=== PATIENT | female | born 1985 | race Caucasian/White ===

== ENCOUNTER 2016-12-27 16:13 | Inpatient (IN) | payer OTHER ==
[~2016-12-27] VITALS: Ht 154.9 cm; Wt 84.8 kg
[~2016-12-27 16:13] MED LIST: /ONDA4TA OR; AZAT50TA2 PO; AZATPOW PO; BACIDCA PO; BIRTH CONTROL PO; COZA50TA18 PO; FLUD1TA PO; FLUDROCORTISONE PO; HYDR5TAB59 PO; HYDRPOW14 PO; INSUH10VL SC; LOSA50TA20 PO; LOW-TAB2 PO; POTA-77 PO; SYNT125T PO; SYNT150T PO; VITAMIN B12 PO; [UNRECOGNIZED DRUG - CODE] PO
[2016-12-27] MEDS ORDERED: CELL500T PO (16:32)
[2016-12-27] MEDS ORDERED: LEVO10VL PO (16:32)
[2016-12-27] MEDS ORDERED: NS 1,000 ML IV ONE ×2 (17:00→19:15)
[2016-12-27] MEDS ORDERED: PROMETHAZINE INJ 25 MG/ML VIAL (J2550) IV ONE (17:00)
[2016-12-27 17:39] LABS: MEAN CORPUSCULAR HGB CONC 35.6 g/dl (32.0-36.5); PLATELET COUNT, AUTOMATED 283 k/mm3 (150-450); RED CELL DISTRIBUTION WIDTH 13.9 % (11.5-14.5); WHITE BLOOD COUNT 11.3 K/mm3 (4.0-10.0)
[2016-12-27 17:52] LABS: ANION GAP 13 MEQ/L (8-16); BLOOD UREA NITROGEN 13 MG/DL (7-18); CALCIUM LEVEL 8.4 MG/DL (8.5-10.1); CARBON DIOXIDE LEVEL 24 MEQ/L (21-32); CHLORIDE LEVEL 107 MEQ/L (98-107); CREATININE FOR GFR 0.89 MG/DL (0.55-1.02); GLOMERULAR FILTRATION RATE > 60.0 (>60); GLUCOSE, FASTING 148 MG/DL (70-105); POTASSIUM SERUM 3.3 MEQ/L (3.5-5.1); SODIUM LEVEL 144 MEQ/L (136-145)
[2016-12-27 17:53] LABS: BANDS 3 % (< 11); EOSINOPHILS 1 % (0-5)
[2016-12-27] MEDS ORDERED: ONDANSETRON 4MG/2ML VIAL (J2405) As Ordered ONE (19:11)
[2016-12-27] MEDS ORDERED: ONDANSETRON 4MG/2ML VIAL (J2405) IV ONE (19:15)
[2016-12-27 19:35] LABS: ALBUMIN 3.2 GM/DL (3.2-5.2); ALBUMIN/GLOBULIN RATIO 0.71 (1.00-1.93); ALKALINE PHOSPHATASE 65 U/L (45-117); ALT/SGPT 31 U/L (12-78); AST/SGOT 25 U/L (15-37); BILIRUBIN,DIRECT 0.3 MG/DL (0.0-0.2); TOTAL PROTEIN 7.7 GM/DL (6.4-8.2)
[2016-12-27] MEDS ORDERED: KCL 20MEQ IN 100ML SWI (KRUN) 20 MEQ in APPROPRIATE DILUENT 1 EA IV ONE ×2 (19:45)
[2016-12-27 20:01] LABS: INR 1.15
[2016-12-27] MEDS ORDERED: GLUCAGON FOR INJ 1 MG VIAL (J1610) SC PRN (20:15)
[2016-12-27] MEDS ORDERED: METOCLOPRAMIDE INJ 10MG/2ML VIAL (J2765) IV PRN (20:15)
[2016-12-27] MEDS ORDERED: DEXTROSE 50% 50 ML SYRINGE IV PRN (20:15)
[2016-12-27] MEDS ORDERED: GLUCOSE 4 GM CHEW TABLET PO PRN (20:15)
[2016-12-27] MEDS ORDERED: HYDR5TAB59 PO (20:26)
[2016-12-27] MEDS ORDERED: FLUD1TA PO (20:26)
[2016-12-27] MEDS ORDERED: HYDR-3291 PO (20:26)
[2016-12-27] MEDS ORDERED: INSUH10VL SC (20:26)
[2016-12-27] MEDS ORDERED: LEVO137T14 PO (20:28)
[2016-12-27] MEDS ORDERED: MYCO250C PO (20:28)
[2016-12-27] MEDS ORDERED: LOSA50TA20 PO (20:28)
[2016-12-27] MEDS ORDERED: HYDR10T PO (20:30)
[2016-12-27] MEDS ORDERED: CRYS28TA PO (20:30)
[2016-12-27 20:33] LABS: AMYLASE 30 U/L (25-115)
--- NOTE | 2016-12-27 20:36 | HPEPDOC ---
General Date of Admission Dec 27, 2016 at 20:07 Chief Complaint The patient is a 31-year-old female Presented to the ER with complaints of nausea, vomiting and diarrhea starting this morning. History of Present Illness Patient is a 31 year old female with a PMHx of Hypothyroidism, Lupus nephritis, Autoimmune hepatitis, Addisons disease and IDDM1 who presented to the ER with complaints of nausea, vomiting and diarrhea starting this morning. She noted that at 10 am this morning she had an upset stomach and began having nausea and vomiting soon after. She went to her PCPs office (Dr. Hilton) at 1pm and was told to come to the ER. She had begun to experience diarrhea since that point and the last episode was around 4PM. She notes the vomiting has been mostly liquid, without blood and appeared yellow. Her diarrhea was very watery, no evidence of blood or mucus. She denies any recent fevers today. 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 Her abdominal pain was reported at the epigastric area. She rate the pain as a 8 /10, achy / burning sensation, intermittent, non-radiating, no alleviating or aggravating factors. She denies any chest pain, shortness of breath, palpitations, headache, or urinary symptoms. She does report that she gets a little light headed when she sits up too quickly, but denies passing out. Home Medications Scheduled (Bobe-28 0.3-30 mg-Mcg) 1 Tab Tab 1 TAB PO QHS (Reported) Fludrocortisone Acetate (Fludrocortisone Acetate) 0.1 Mg Tab 0.1 MG PO DAILY ( Reported) Hydrocortisone Base (Hydrocortisone) 10 Mg Tab 10 MG PO QAM (Reported) Hydrocortisone Base (Hydrocortisone) 5 Mg Tab 5 MG PO QHS (Reported) Insulin Aspart (Novolog) 100 U/Ml Inj 0 SC ASDIRECTED (Reported) INSULIN PUMP - DISCONNECTED AROUND 1530 Levothyroxine Sodium (Levoxyl) 137 Mcg Tab 137 MCG PO DAILY (Reported) Losartan Potassium (Losartan Potassium) 50 Mg Tab 50 MG PO DAILY (Reported) Mycophenolate Mofetil (Mycophenolate Mofetil) 250 Mg Cap 750 MG PO BID ( Reported) WAS ON A TAPER UP DOSE. SPOKE WITH KIDNEY DR AND STATES THAT SHE CAN DECREASE BACK TO EITHER 250MG BID OR 500MG BID, PATIENT AND FAMILY CANNOT REMEMBER WHICH STRENGTH Scheduled PRN Hydroxyzine HCl (Hydroxyzine HCl) 10 Mg Tab 10 MG PO QID PRN PRN ITCHING ( Reported) Allergies Coded Allergies: Bacitracin (Verified Allergy, Intermediate, 12/27/16) Ibuprofen (Verified Allergy, Intermediate, 12/27/16) Metronidazole (Verified Allergy, Intermediate, flushing, itching, tingling , 02/01/13) Neomycin (Verified Allergy, Intermediate, 12/27/16) Polymyxin B (Verified Allergy, Intermediate, 12/27/16) Shellfish Allergy (Verified Allergy, Intermediate, HIVES, 01/21/13) Past Medical History Medical History Hypothyroidism, Lupus nephritis, Autoimmune hepatitis, Addisons disease and IDDM1 Surgical History Appendectomy 1997 Liver biopsy 1996 Kidney biopsy 2016 Family History - Non-contributory Social History - Denies the use of alcohol, tobacco or illicit drugs - Denies recent travel; + Sick contacts at day care - Lives with mom - Occupation; works at [employer] care Review of Symptoms Other systems Constitutional: Denies weight loss, or recent trauma; Positive loss of appetite Eyes: No visual changes or eye pain Ears, Nose, Throat: Denies nose bleeds, or difficulty swallowing Cardiovascular: Denies chest pain, sweating, or orthopnea Respiratory: Denies cough, wheezing, or shortness of breath GI: Positive nausea, vomiting, abdominal pain, and diarrhea, No constipation : Denies pain with urination or frequency Musculoskeletal: Denies joint pain or swelling Neuro / Psych: Denies muscle weakness or sensory loss Skin: No skin rashes noted All other review of systems negative; otherwise stated in history of present illness Vital Signs - Vitals: BP 139/85, HR 127, RR 18, Sat 99%RA, Temp 99.2 - General: Lying in bed, No acute distress, Speaking in full sentences, AAOx3 - HEENT: NC, AT, PERRLA, EOMI - CVS: Tachycardic, Regular rhythm, +S1S2, - Murmurs / rubs / gallops - Lungs: Fair air entry bilaterally, Clear to auscultation, No wheezing / rales / rhonchi - Abdomen: Soft, Non-distended, Tenderness at epigastrium, + Bowel sounds x 4 - Extremities: + PPx4, No lower extremity edema, No calf tenderness - Neuro: No focal motor or sensory deficit - Skin: No visible rashes Laboratory Data Labs 24H Laboratory Tests 2 12/27/16 17:25: Aspartate Amino Transf (AST/SGOT) 25, Alanine Aminotransferase (ALT/SGPT) 31, Alkaline Phosphatase 65, Total Bilirubin 1.0, Direct Bilirubin 0.3H, Albumin 3.2 , Albumin/Globulin Ratio 0.71L, Amylase Level 30, Anion Gap 13, Band Neutrophils 3, White Blood Count 11.3H, Red Blood Count 4.84, Hemoglobin 15.5, Hematocrit 43.6, Mean Corpuscular Volume 90.0, Mean Corpuscular Hemoglobin 32.0 , Mean Corpuscular Hemoglobin Concent 35.6, Red Cell Distribution Width 13.9, Platelet Count 283, Neutrophils (%) (Auto) , Lymphocytes (%) (Auto) , Monocytes (%) (Auto) , Eosinophils (%) (Auto) , Basophils (%) (Auto) , Neutrophils # (Auto ) , Lymphocytes # (Auto) , Monocytes # (Auto) , Eosinophils # (Auto) , Basophils # (Auto) , C-Reactive Protein, Quantitative 3.43H, Calcium Level 8.4L , Cortisol Response to Stimulation (T 1.6L, Eosinophils (Manual) 1, Glomerular Filtration Rate > 60.0, Large Unclassified Cells # , Large Unclassified Cells % , Lipase 90, Lymphocytes (Manual) 5L, Monocytes (Manual) 2, Neutrophils 89H, Platelet Estimate NORMAL, Red Blood Cell Morphology NORMAL, Total Protein 7.7 12/27/16 19:27: Activated Partial Thromboplast Time 21.3L, Prothromb Time International Ratio 1.15, Prothrombin Time 14.8H 12/27/16 19:40: CBC/BMP Laboratory Tests 12/27/16 17:25 Red Blood Count 4.84, Mean Corpuscular Volume 90.0, Mean Corpuscular Hemoglobin 32.0, Mean Corpuscular Hemoglobin Concent 35.6, Red Cell Distribution Width 13.9 , Neutrophils (%) (Auto) , Lymphocytes (%) (Auto) , Monocytes (%) (Auto) , Eosinophils (%) (Auto) , Basophils (%) (Auto) , Neutrophils # (Auto) , Lymphocytes # (Auto) , Monocytes # (Auto) , Eosinophils # (Auto) , Basophils # ( Auto) Microbiology Microbiology 12/27/16 Blood Culture, Received Pending Plan / VTE VTE Prophylaxis Ordered?: Yes Plan Plan Intractable nausea, vomiting and diarrhea possibly 2/2 gastroenteritis (likely viral), possible adrenal crisis - Presented with nausea, vomiting and diarrhea since this morning - Possible sick contacts at day care - Physical reveals generalized fatigue and abdominal tenderness - Will check orthostatic vital signs Q8H, check GI panel - Will give IV fluid hydration with normal saline - Will hold off on antibiotics at this time - Will keep NPO for now - Will provide symptomatic control with metoclopramide - Will increase dose of home hydrocortisone and give intravenously Tachycardia possibly 2/2 hypovolemia - no reports of chest pain, palpitations or SOB - will check EKG - will give IV fluid hydration Leukocytosis possibly 2/2 reactive etiology, possibly infectious - will check urinalysis, urine cultures, blood cultures and lactic acid - will c/w IV fluid hydration - will hold off on antibiotics at this point Hypokalemia - will supplement via IV Hypothyroidism - c/w levothyroxine Lupus nephritis and autoimmune hepatitis - has recently been changed to mycophenolate mofetil - will continue home medications Addisions disease possible crisis at this time - low cortisol level - see #1 IDDM1 - has been on insulin pump at home - will stop insulin pump because she is NPO - will start insulin sliding scale Gastrointestinal prophylaxis - Will start protonix DVT prophylaxis - Will start heparin HUGH KNOX MD Dec 27, 2016 20:36
[2016-12-27] MEDS ORDERED: HumaLOG INSULIN (NovoLOG) PER UNIT SC SCH (21:00)
[2016-12-27] MEDS ORDERED: MYCOPHENOLATE MOFETIL 250 MG CAP (J7517) PO SCH (21:00)
[2016-12-27] MEDS: NS 1,000 ML IV SCH (21:14)
[2016-12-27] MEDS: KCL 10MEQ IN STERILE WATER 100ML IV SCH ×2 (22:16→23:28)
[2016-12-27] MEDS: HYDROCORTISONE 100 MG/2 ML VIAL (J1720) IV SCH (22:16)
[2016-12-27] MEDS: ACETAMINOPHEN TAB 650MG DOSE (2X325MG) PO PRN (22:50)
[2016-12-27 23:00] VITALS: BP_SYST 121; BP_SYST 124; BP_SYST 125; BP_DIAS 69; BP_DIAS 73; BP_DIAS 74
[2016-12-27] MEDS: MYCOPHENOLATE MOFETIL 250 MG CAP (J7517) PO SCH (23:22)
[2016-12-28] MEDS: HumaLOG INSULIN (NovoLOG) PER UNIT SC SCH ×4 (00:14→18:00)
[2016-12-28] MEDS: PIPERACILLIN/TAZOBACTAM SOD 3.375 GM in D5W MINI-BAG PLUS 50 ML IV SCH ×4 (00:20→23:50)
--- NOTE | 2016-12-28 00:27 | REP ---
Clinical: Chest pain and dyspnea. Evaluate for infiltrate. Comparison: 01/30/2013 . Technique: PA and lateral. Findings: The mediastinum and cardiac silhouette are normal. The lung sharma are clear and without acute consolidation, effusion, or pneumothorax. The skeletal structures are intact and normal. Impression: 1. No acute cardiopulmonary process. Signed by Jermaine Gallego MD 12/28/2016 12:19 A
[2016-12-28] MEDS ORDERED: ASPIRIN 325 MG TAB PO ONE (01:30)
[2016-12-28 04:00] VITALS: BP 127/65
[2016-12-28] MEDS: ACETAMINOPHEN TAB 650MG DOSE (2X325MG) PO PRN ×3 (04:36→20:31)
[2016-12-28 05:21] LABS: EOS % 0.2 % (0.0-3.0); LARGE UNSTAINED CELL # 0.1 K/mm3 (0.0-0.4); LYMPH # 0.5 K/mm3 (1.5-6.5); MEAN CORPUSCULAR HEMOGLOBIN 31.7 pg (27.0-33.0); MEAN CORPUSCULAR HGB CONC 34.6 g/dl (32.0-36.5); MEAN CORPUSCULAR VOLUME 91.5 fl (80.0-96.0); MONO # 0.3 K/mm3 (0.0-0.8); MONO % 3.4 % (0.0-5.0); NEUTROPHILS # 6.7 K/mm3 (1.8-7.7); NEUTROPHILS % 89.3 % (36.0-66.0); PLATELET COUNT, AUTOMATED 238 k/mm3 (150-450); RED CELL DISTRIBUTION WIDTH 14.1 % (11.5-14.5); WHITE BLOOD COUNT 7.5 K/mm3 (4.0-10.0)
[2016-12-28 05:50] LABS: CALCIUM OXALATE CRYSTALS SMALL
[2016-12-28 06:04] LABS: ALBUMIN 2.2 GM/DL (3.2-5.2); ALBUMIN/GLOBULIN RATIO 0.61 (1.00-1.93); ALKALINE PHOSPHATASE 42 U/L (45-117); ALT/SGPT 23 U/L (12-78); ANION GAP 10 MEQ/L (8-16); AST/SGOT 24 U/L (15-37); BILIRUBIN,TOTAL 1.1 MG/DL (0.2-1.0); BLOOD UREA NITROGEN 13 MG/DL (7-18); CALCIUM LEVEL 7.1 MG/DL (8.5-10.1); CARBON DIOXIDE LEVEL 22 MEQ/L (21-32); CHLORIDE LEVEL 110 MEQ/L (98-107); GLOMERULAR FILTRATION RATE > 60.0 (>60); GLUCOSE, FASTING 267 MG/DL (70-105); MAGNESIUM LEVEL 1.5 MG/DL (1.8-2.4); POTASSIUM SERUM 3.7 MEQ/L (3.5-5.1); SODIUM LEVEL 142 MEQ/L (136-145); TOTAL PROTEIN 5.8 GM/DL (6.4-8.2)
[2016-12-28] MEDS: NS 1,000 ML IV SCH ×2 (06:26→16:07)
[2016-12-28] MEDS: HYDROCORTISONE 100 MG/2 ML VIAL (J1720) IV SCH (06:27)
[2016-12-28] MEDS: HEPARIN SOD (PORCINE) 5000 UNITS/ML VIAL SC SCH ×3 (06:28→21:10)
[2016-12-28] MEDS: LEVOTHYROXINE 0.137 MG TAB (137MCG) PO SCH (06:28)
[2016-12-28] MEDS ORDERED: HumaLOG INSULIN (NovoLOG) PER UNIT SC SCH (07:30)
[2016-12-28 08:00] VITALS: BP 117/68
[2016-12-28] MEDS: PANTOPRAZOLE 40MG INJ (PROTONIX) (C9113) IV SCH (08:03)
[2016-12-28] MEDS: MYCOPHENOLATE MOFETIL 250 MG CAP (J7517) PO SCH ×2 (08:04→20:30)
[2016-12-28] MEDS: FLUDROCORTISONE ACETATE 0.1 MG TAB PO SCH (08:04)
[2016-12-28 08:09] VITALS: BP_DIAS 68
[2016-12-28] MEDS: LOSARTAN 50 MG TAB PO SCH (08:09)
--- NOTE | 2016-12-28 08:24 | ECGEPIP ---
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
[2016-12-28] MEDS: MAG SULF 1GM/100ML (MAG RUN) 1 GM in APPROPRIATE DILUENT 1 EA IV SCH ×2 (09:00→11:17)
[2016-12-28 14:15] VITALS: BP 128/82
[2016-12-28 15:04] LABS: HCG, SERUM QUANTITATIVE < 1.0 MIU/ML
[2016-12-28 16:00] VITALS: BP 134/78
[2016-12-28 20:00] VITALS: BP 112/67
--- NOTE | 2016-12-28 20:09 | IPNPDOC ---
Subjective Date Seen The patient was seen on 12/28/16. Subjective Chief Complaint/HPI The patient is a 31-year-old female admitted with a reason for visit of Abnormal Cortison Level,Dehydration Enteritis,Vomi. Events since last encounter pt seen and examined, doing well, states she has had no nausea or vomiting since admission, is hungry and asking for food, no diarrhea Objective Physical Examination General Exam: Positive: No Acute Distress Eye Exam: Positive: Conjunctiva & lids normal, EOMI, PERRLA, Negative: Sclera icteric Chest Exam: Positive: Clear to auscultation, Normal air movement Heart Exam: Positive: Normal S1, Normal S2, Rate Normal, Regular Rhythm, Negative: Murmurs, Rubs Abdomen Exam: Positive: Normal bowel sounds, Soft, Negative: Hepatospenomegaly, Tenderness Extremity Exam: Positive: Normal pulses, Negative: Clubbing, Cyanosis, Edema Assessment /Plan Problems (1) Dehydration Status: Resolved Problem Text: pt received IVF will d/c once tolerating diet (2) Vomiting Status: Resolved Problem Text: * no vomiting since admission Plan/VTE VTE Prophylaxis Ordered?: Yes VS, I&O, 24H, [facility] Vital Signs/I&O Vital Signs Date Time Temp Pulse Resp B/P Pulse Ox O2 Delivery O2 Flow Rate FiO2 12/28/16 16:20 20 Room Air 12/28/16 16:00 99.1 107 134/78 95 I&O- Last 24 Hours up to 6 AM 12/28/16 06:00 Intake Total 810 ml Output Total 600 ml Balance 210 ml Laboratory Data 24H LABS Laboratory Tests 2 12/27/16 21:20: Bedside Glucose (Misc Panel) 190H 12/27/16 23:10: Bedside Glucose (Misc Panel) 311H 12/28/16 00:18: Lactic Acid Level 1.4 12/28/16 04:42: Urine Amorphous Sediment , Urine Appearance CLEAR, Urine Color YELLOW, Urine pH 5.0, Urine Specific [place] 1.025, Urine Protein 2+H, Urine Glucose (UA) 3+H, Urine Ketones 2+H, Urine Urobilinogen 0.2, Urine Bilirubin NEGATIVE, Urine Leukocyte Esterase NEGATIVE, Urine Bacteria (Auto) 1+H, Urine Blood 3+H, Urine Calcium Carbonate Cryst(Auto) , Urine Calcium Oxalate Cryst (Auto) SMALL, Urine Calcium Phosphate Scarlett (Auto) , Urine Cellular Casts , Urine Cystine Crystals , Urine Granular Casts (Auto) , Urine Hyaline Casts (Auto) 3, Urine Leucine Crystals , Urine Mucus (Auto) , Urine Nitrite NEGATIVE, Urine Oval Fat Bodies ( Auto) , Urine RBC (Auto) 19H, Urine Renal Epithelial Cells , Urine Sperm (Auto) , Urine Squamous Epithelial Cells 1, Urine Transitional Epithelial Cells , Urine Trichomonas (Auto) , Urine Triple Phosphate Cryst (Auto) , Urine Tyrosine Crystals , Urine Uric Acid Crystals (Auto) , Urine WBC (Auto) 7H, Urine Waxy Casts (Auto) , Urine Yeast-Like Cells (Auto) 12/28/16 04:45: Blood Urea Nitrogen 13, Creatinine 1.00, Sodium Level 142, Potassium Level 3.7, Chloride Level 110H, Carbon Dioxide Level 22, Calcium Level 7.1#L, Aspartate Amino Transf (AST/SGOT) 24, Alanine Aminotransferase (ALT/SGPT) 23, Alkaline Phosphatase 42L, Total Bilirubin 1.1H, Total Protein 5.8#L, Albumin 2.2#L, Albumin/Globulin Ratio 0.61L, Anion Gap 10, White Blood Count 7.5, Red Blood Count 3.88L, Hemoglobin 12.3#, Hematocrit 35.5L, Mean Corpuscular Volume 91.5, Mean Corpuscular Hemoglobin 31.7, Mean Corpuscular Hemoglobin Concent 34.6, Red Cell Distribution Width 14.1, Platelet Count 238, Neutrophils (%) (Auto) 89.3H, Lymphocytes (%) (Auto) 6.0L, Monocytes (%) (Auto) 3.4, Eosinophils (%) (Auto) 0.2, Basophils (%) (Auto) 0.0, Neutrophils # (Auto) 6.7, Lymphocytes # (Auto) 0.5L, Monocytes # (Auto) 0.3, Eosinophils # (Auto) 0.0, Basophils # (Auto) 0.0, Glomerular Filtration Rate > 60.0, Human Chorionic Gonadotropin, Quant < 1.0, Large Unclassified Cells # 0.1, Large Unclassified Cells % 1.0, Magnesium Level 1.5L 12/28/16 06:18: Bedside Glucose (Misc Panel) 301H 12/28/16 11:14: Bedside Glucose (Misc Panel) 280H 12/28/16 18:10: Bedside Glucose (Misc Panel) 165H CBC/BMP Laboratory Tests 12/28/16 04:45 Calcium Level 7.1 #L, Aspartate Amino Transf (AST/SGOT) 24, Alanine Aminotransferase (ALT/SGPT) 23, Alkaline Phosphatase 42 L, Total Bilirubin 1.1 H , Total Protein 5.8 #L, Albumin 2.2 #L, Red Blood Count 3.88 L, Mean Corpuscular Volume 91.5, Mean Corpuscular Hemoglobin 31.7, Mean Corpuscular Hemoglobin Concent 34.6, Red Cell Distribution Width 14.1, Neutrophils (%) (Auto ) 89.3 H, Lymphocytes (%) (Auto) 6.0 L, Monocytes (%) (Auto) 3.4, Eosinophils (% ) (Auto) 0.2, Basophils (%) (Auto) 0.0, Neutrophils # (Auto) 6.7, Lymphocytes # (Auto) 0.5 L, Monocytes # (Auto) 0.3, Eosinophils # (Auto) 0.0, Basophils # ( Auto) 0.0 Microbiology Microbiology 12/27/16 Blood Culture - Preliminary, Resulted No growth after 24 hours . All specim... 12/28/16 Urine Culture, Received Pending MIRNA KWON DO Dec 28, 2016 20:09
[2016-12-28] MEDS: HYDROCORTISONE 10 MG TAB PO SCH (21:10)
[2016-12-29] VITALS: BP 137/85
[2016-12-29] MEDS: HumaLOG INSULIN (NovoLOG) PER UNIT SC SCH ×3 (06:00→12:00)
[2016-12-29] MEDS: LEVOTHYROXINE 0.137 MG TAB (137MCG) PO SCH (06:04)
[2016-12-29] MEDS: HEPARIN SOD (PORCINE) 5000 UNITS/ML VIAL SC SCH ×2 (06:04→13:58)
[2016-12-29 07:50] LABS: BASO % 0.1 % (0.0-1.0); EOS % 0.5 % (0.0-3.0); LARGE UNSTAINED CELL # 0.2 K/mm3 (0.0-0.4); LYMPH # 0.7 K/mm3 (1.5-6.5); MEAN CORPUSCULAR HEMOGLOBIN 31.8 pg (27.0-33.0); MEAN CORPUSCULAR HGB CONC 36.1 g/dl (32.0-36.5); MEAN CORPUSCULAR VOLUME 88.1 fl (80.0-96.0); MONO # 0.2 K/mm3 (0.0-0.8); MONO % 4.4 % (0.0-5.0); NEUTROPHILS # 4.4 K/mm3 (1.8-7.7); NEUTROPHILS % 81.9 % (36.0-66.0); PLATELET COUNT, AUTOMATED 217 k/mm3 (150-450); RED CELL DISTRIBUTION WIDTH 13.5 % (11.5-14.5); WHITE BLOOD COUNT 5.4 K/mm3 (4.0-10.0)
[2016-12-29 08:00] VITALS: BP 135/85
[2016-12-29 08:01] LABS: ALBUMIN 2.2 GM/DL (3.2-5.2); ALBUMIN/GLOBULIN RATIO 0.69 (1.00-1.93); ALKALINE PHOSPHATASE 41 U/L (45-117); ALT/SGPT 42 U/L (12-78); ANION GAP 8 MEQ/L (8-16); AST/SGOT 57 U/L (15-37); BILIRUBIN,TOTAL 0.7 MG/DL (0.2-1.0); BLOOD UREA NITROGEN 7 MG/DL (7-18); CALCIUM LEVEL 7.3 MG/DL (8.5-10.1); CARBON DIOXIDE LEVEL 23 MEQ/L (21-32); CHLORIDE LEVEL 110 MEQ/L (98-107); CREATININE FOR GFR 0.66 MG/DL (0.55-1.02); GLOMERULAR FILTRATION RATE > 60.0 (>60); GLUCOSE, FASTING 146 MG/DL (70-105); MAGNESIUM LEVEL 2.2 MG/DL (1.8-2.4); POTASSIUM SERUM 3.3 MEQ/L (3.5-5.1); SODIUM LEVEL 141 MEQ/L (136-145); TOTAL PROTEIN 5.4 GM/DL (6.4-8.2)
[2016-12-29 08:16] LABS: ADD MORPHOLOGY? YES
[2016-12-29] MEDS: PANTOPRAZOLE 40MG INJ (PROTONIX) (C9113) IV SCH (08:57)
[2016-12-29] MEDS: PIPERACILLIN/TAZOBACTAM SOD 3.375 GM in D5W MINI-BAG PLUS 50 ML IV SCH (08:57)
[2016-12-29] MEDS: HYDROCORTISONE 10 MG TAB PO SCH (08:57)
[2016-12-29 08:58] VITALS: BP_SYST 135
[2016-12-29] MEDS: FLUDROCORTISONE ACETATE 0.1 MG TAB PO SCH (08:58)
[2016-12-29] MEDS: LOSARTAN 50 MG TAB PO SCH (08:58)
[2016-12-29] MEDS: MYCOPHENOLATE MOFETIL 250 MG CAP (J7517) PO SCH (08:58)
[2016-12-29 09:39] LABS: ANISOCYTOSIS 1+; POLYCHROMASIA 1+
[2016-12-29] MEDS ORDERED: POTASSIUM CHLORIDE 10 MEQ SR TABLET PO ONE (14:30)
--- NOTE | 2017-01-05 12:58 | DSES ---
DATE OF ADMISSION: 12/27/2016 DATE OF DISCHARGE: 12/29/2016 REASON FOR ADMISSION: Nausea, vomiting, diarrhea. FINAL DIAGNOSES: 1. Dehydration 2. Gastroenteritis. 3. Vomiting. 4. Hypokalemia. HISTORY OF PRESENT ILLNESS (HPI): Patient is a 31-year-old healthy female presented to the emergency room complaining of nausea or vomiting that started the day prior to admission. Patient has a history of hypothyroidism, autoimmune hepatitis, Miguelangel disease. She started noticing diarrhea and vomiting mostly liquid without any blood. In the emergency room, patient was complaining of epigastric abdominal pain, was admitted. She was started on Cortef at a higher dose, as well as Zosyn for gastroenteritis. Once patient was admitted, she did not have anymore episodes of diarrhea. Gastrointestinal (GI) panel was not done since patient did not have any bowel movements. She did have a mildly abnormal urinalysis but urine culture was found to be negative. The patient remained in the hospital for 2 days until she was shown to tolerate diet and no longer required intravenous (IV) fluids. Once patient was tolerating diet and denied any and nausea or vomiting and no more episodes of diarrhea, she was discharged home to followup with primary care provider. She was returned back to her normal dose of Cortef upon discharge. DISCHARGE INSTRUCTIONS: She is to follow up with primary care provider in 1-2 weeks. Diet regular. Activities as tolerated. Her medications include: - fludrocortisone acetate 0.1 mg daily - Cryselle control one tablet by mouth at bedtime - Cortef 10 mg in the morning and 5 mg at night - hydroxyzine 10 mg four times a day as needed, itching - insulin as directed - levothyroxine 137 mcg by mouth daily - losartan 50 mg daily Discharge condition stable.
== END 2016-12-29 16:40 | disposition home or self-care (01) | DRG 392 ==
LOC: M ED 17:06 → M ED INP 20:07 → M ICU 23:02 → M PED 12-28 14:10
PROVIDERS: ADMIT Internal Medicine; ATTEND Internal Medicine
DX: A08.4 Viral intestinal infection, unspecified (principal); E27.2 Addisonian crisis; E03.9 Hypothyroidism, unspecified; M32.14 Glomerular disease in systemic lupus erythematosus; E87.6 Hypokalemia; E86.0 Dehydration; K75.4 Autoimmune hepatitis; E10.9 Type 1 diabetes mellitus without complications; Z79.4 Long term (current) use of insulin; Z79.899 Other long term (current) drug therapy; Z88.1 Allergy status to other antibiotic agents; Z88.6 Allergy status to analgesic agent; Z88.8 Allergy status to other drugs, medicaments and biological substances; Z91.013 Allergy to seafood

== ENCOUNTER → 2017-02-04 | Outpatient (CLI) | payer OTHER ==
[~2017-02-04] MED LIST changes: +CELL500T PO; +CRYS28TA PO; +HYDR-3291 PO; +HYDR10T PO; +LEVO10VL PO; +LEVO137T14 PO; +MYCO250C PO
[2017-02-04 11:57] LABS: BASO % 0.1 % (0.0-1.0); EOS % 0.2 % (0.0-3.0); LARGE UNSTAINED CELL # 0.2 K/mm3 (0.0-0.4); LARGE UNSTAINED CELL % 1.5 % (0.0-4.0); LYMPH # 0.9 K/mm3 (1.5-6.5); LYMPH % 7.1 % (24.0-44.0); MEAN CORPUSCULAR HEMOGLOBIN 30.9 pg (27.0-33.0); MEAN CORPUSCULAR HGB CONC 34.3 g/dl (32.0-36.5); MEAN CORPUSCULAR VOLUME 90.3 fl (80.0-96.0); MONO # 0.3 K/mm3 (0.0-0.8); MONO % 3.1 % (0.0-5.0); PLATELET COUNT, AUTOMATED 193 k/mm3 (150-450); RED CELL DISTRIBUTION WIDTH 12.8 % (11.5-14.5); WHITE BLOOD COUNT 10.2 K/mm3 (4.0-10.0)
== END ==
LOC: M LAB 11:16
PROVIDERS: ATTEND Internal Medicine Nephrology
DX: M32.14 Glomerular disease in systemic lupus erythematosus (principal)

== ENCOUNTER → 2017-02-04 | Outpatient (CLI) | payer OTHER ==
[2017-02-04 11:53] LABS: BASO % 0.1 % (0.0-1.0); EOS % 0.2 % (0.0-3.0); LARGE UNSTAINED CELL # 0.1 K/mm3 (0.0-0.4); LARGE UNSTAINED CELL % 1.3 % (0.0-4.0); LYMPH # 0.9 K/mm3 (1.5-6.5); LYMPH % 7.4 % (24.0-44.0); MEAN CORPUSCULAR HGB CONC 33.4 g/dl (32.0-36.5); MONO # 0.3 K/mm3 (0.0-0.8); MONO % 3.3 % (0.0-5.0); NEUTROPHILS # 9.1 K/mm3 (1.8-7.7); NEUTROPHILS % 87.6 % (36.0-66.0); PLATELET COUNT, AUTOMATED 205 k/mm3 (150-450); RED CELL DISTRIBUTION WIDTH 12.6 % (11.5-14.5); WHITE BLOOD COUNT 10.3 K/mm3 (4.0-10.0)
== END ==
LOC: M LAB 11:13
PROVIDERS: ATTEND Internal Medicine Gastroenterology
DX: K75.4 Autoimmune hepatitis (principal)

== ENCOUNTER → 2018-07-16 | Outpatient (REF) | payer OTHER | LOC: M LAB REF 13:26 | DX: N60.02 Solitary cyst of left breast (principal) | CPT/HCPCS: 87186 ==

== ENCOUNTER → 2018-07-18 | Outpatient (CLI) | payer OTHER ==
[2018-07-18 14:26] LABS: BASO % 0.1 % (0.0-1.0); EOS % 0.1 % (0.0-3.0); HEMATOCRIT 38.8 % (36.0-47.0); HEMOGLOBIN 13.1 g/dl (12.0-15.5); IMMATURE GRANULOCYTE % 0.5 % (0-3.0); LYMPH # 0.7 10^3/uL (1.5-4.5); LYMPH % 7.3 % (24.0-44.0); MEAN CORPUSCULAR HEMOGLOBIN 29.4 pg (27.0-33.0); MEAN CORPUSCULAR HGB CONC 33.8 g/dl (32.0-36.5); MONO # 0.6 10^3/uL (0.0-0.8); MONO % 6.1 % (0.0-5.0); NEUTROPHILS # 8.6 10^3/uL (1.8-7.7); NEUTROPHILS % 85.9 % (36.0-66.0); PLATELET COUNT, AUTOMATED 376 10^3/uL (150-450); RED BLOOD COUNT 4.46 10^6/uL (4.00-5.40); RED CELL DISTRIBUTION WIDTH 13.2 % (11.5-14.5)
[2018-07-18 14:51] LABS: ALBUMIN 3.1 GM/DL (3.2-5.2); ALBUMIN/GLOBULIN RATIO 0.72 (1.00-1.93); ALKALINE PHOSPHATASE 65 U/L (45-117); ALT/SGPT 104 U/L (12-78); ANION GAP 7 MEQ/L (8-16); AST/SGOT 47 U/L (7-37); BILIRUBIN,TOTAL 0.4 MG/DL (0.2-1.0); BLOOD UREA NITROGEN 9 MG/DL (7-18); CALCIUM LEVEL 8.6 MG/DL (8.5-10.1); CARBON DIOXIDE LEVEL 24 MEQ/L (21-32); CHLORIDE LEVEL 106 MEQ/L (98-107); CREATININE FOR GFR 0.95 MG/DL (0.55-1.30); GLOMERULAR FILTRATION RATE > 60.0 (>60); GLUCOSE, FASTING 279 MG/DL (70-100); POTASSIUM SERUM 4.7 MEQ/L (3.5-5.1); SODIUM LEVEL 137 MEQ/L (136-145); TOTAL PROTEIN 7.4 GM/DL (6.4-8.2)
== END ==
LOC: M LAB 13:48
DX: N61.1 Abscess of the breast and nipple (principal)
CPT/HCPCS: 80053

== ENCOUNTER → 2018-07-18 | Outpatient (REF) | payer OTHER | LOC: M LAB REF 16:13 | DX: N61.1 Abscess of the breast and nipple (principal) ==

== ENCOUNTER → 2018-10-01 | Outpatient (REF) | payer OTHER ==
[~2018-10-01] MED LIST changes: +FLUD0.1T PO; +HYDR-643 PO; -HYDR10T PO; +LOSA50TA73 PO
== END ==
LOC: M LAB REF 17:04
PROVIDERS: ATTEND Family Medicine
DX: N61.1 Abscess of the breast and nipple (principal)

== ENCOUNTER 2018-10-20 09:05 | Inpatient (IN) | payer OTHER ==
[~2018-10-20] VITALS: Ht 154.9 cm; Wt 82.5 kg
[~2018-10-20 09:05] MED LIST changes: -LOSA50TA73 PO; +LOSA50TA88 PO
[2018-10-20] MEDS ORDERED: HYDR200T3 PO (09:12)
[2018-10-20] MEDS ORDERED: METOCLOPRAMIDE INJ 10MG/2ML VIAL (J2765) IV ONE (09:45)
[2018-10-20] MEDS ORDERED: NS 1,000 ML IV ONE ×3 (09:45→13:45)
[2018-10-20] MEDS ORDERED: ONDANSETRON 4MG/2ML VIAL (J2405) IV PRN (09:45)
[2018-10-20 09:51] LABS: VENOUS BASE EXCESS -0.3 (-2.0-2.0); VENOUS HCO3 25.9 MEQ/L (23.0-27.0); VENOUS O2 SATURATION 71.9 % (60.0-80.0); VENOUS PARTIAL PRESSURE CO2 47.8 mmHg (38.0-50.0); VENOUS PARTIAL PRESSURE O2 39.7 mmHg (30.0-50.0); VENOUS PH 7.351 UNITS (7.330-7.430); VENOUS STANDARD HCO3 23.5 MEQ/L; VENOUS TOTAL CO2 27.3 MEQ/L (24.0-28.0)
[2018-10-20 09:55] LABS: BASO % 0.1 % (0.0-1.0); EOS # 0.1 10^3/uL (0.0-0.50); EOS % 1.2 % (0.0-3.0); HEMATOCRIT 42.1 % (36.0-47.0); HEMOGLOBIN 14.6 g/dl (12.0-15.5); LYMPH # 0.5 10^3/uL (1.5-4.5); LYMPH % 6.1 % (24.0-44.0); MEAN CORPUSCULAR HEMOGLOBIN 30.1 pg (27.0-33.0); MEAN CORPUSCULAR HGB CONC 34.7 g/dl (32.0-36.5); MEAN CORPUSCULAR VOLUME 86.8 fl (80.0-96.0); MONO # 0.3 10^3/uL (0.0-0.8); MONO % 4.3 % (0.0-5.0); NEUTROPHILS # 6.7 10^3/uL (1.8-7.7); PLATELET COUNT, AUTOMATED 210 10^3/uL (150-450); RED BLOOD COUNT 4.85 10^6/uL (4.00-5.40); WHITE BLOOD COUNT 7.6 10^3/uL (4.0-10.0)
[2018-10-20 10:18] LABS: HEMOGLOBIN A1c 8.2 %
[2018-10-20 10:19] LABS: HCG, SERUM QUALITATIVE NEGATIVE (NEGATIVE)
[2018-10-20 10:27] LABS: INFLUENZA A AMPLIFICATION NEGATIVE (NEGATIVE); INFLUENZA B AMPLIFICATION NEGATIVE (NEGATIVE)
[2018-10-20 10:28] LABS: ACETONE/KETONE 11.35 MG/DL (<2.81); ALBUMIN 2.9 GM/DL (3.2-5.2); ALT/SGPT 36 U/L (12-78); AMYLASE 37 U/L (25-115); BILIRUBIN,DIRECT < 0.1 MG/DL (0.0-0.2); BILIRUBIN,TOTAL 0.9 MG/DL (0.2-1.0); BLOOD UREA NITROGEN 12 MG/DL (7-18); CALCIUM LEVEL 8.2 MG/DL (8.5-10.1); CARBON DIOXIDE LEVEL 25 MEQ/L (21-32); CHLORIDE LEVEL 102 MEQ/L (98-107); CREATININE FOR GFR 0.94 MG/DL (0.55-1.30); GLOMERULAR FILTRATION RATE > 60.0 (>60); GLUCOSE, FASTING 318 MG/DL (70-100); LIPASE 87 U/L (73-393); MAGNESIUM LEVEL 1.5 MG/DL (1.8-2.4); PHOSPHORUS LEVEL 2.8 MG/DL (2.5-4.9); POTASSIUM SERUM 5.5 MEQ/L (3.5-5.1); SODIUM LEVEL 137 MEQ/L (136-145); TOTAL PROTEIN 7.5 GM/DL (6.4-8.2)
[2018-10-20 10:30] LABS: OSMOLALITY SERUM 293 MOSM/KG (275-295)
[2018-10-20] MEDS ORDERED: HumuLIN R (REGULAR) INSULIN (NovoLIN R) **100U/ML** PER UNIT IV ONE (11:00)
[2018-10-20] MEDS ORDERED: ONDANSETRON 4MG/2ML VIAL (J2405) IV ONE (11:15)
[2018-10-20] MEDS ORDERED: ACETAMINOPHEN 325 MG TAB PO ONE (11:45)
[2018-10-20 12:10] LABS: VENOUS HCO3 20.4 MEQ/L (23.0-27.0); VENOUS O2 SATURATION 87.8 % (60.0-80.0); VENOUS PARTIAL PRESSURE CO2 39.3 mmHg (38.0-50.0); VENOUS PARTIAL PRESSURE O2 57.3 mmHg (30.0-50.0); VENOUS PH 7.333 UNITS (7.330-7.430); VENOUS STANDARD HCO3 20.1 MEQ/L; VENOUS TOTAL CO2 21.6 MEQ/L (24.0-28.0)
[2018-10-20] MEDS ORDERED: NS 1,000 ML IV SCH (12:30)
[2018-10-20 12:43] LABS: ALBUMIN 2.7 GM/DL (3.2-5.2); ALT/SGPT 27 U/L (12-78); BILIRUBIN,TOTAL 0.7 MG/DL (0.2-1.0); BLOOD UREA NITROGEN 11 MG/DL (7-18); CALCIUM LEVEL 7.6 MG/DL (8.5-10.1); CARBON DIOXIDE LEVEL 23 MEQ/L (21-32); CHLORIDE LEVEL 108 MEQ/L (98-107); CREATININE FOR GFR 0.94 MG/DL (0.55-1.30); GLOMERULAR FILTRATION RATE > 60.0 (>60); GLUCOSE, FASTING 164 MG/DL (70-100); POTASSIUM SERUM 3.1 MEQ/L (3.5-5.1); SODIUM LEVEL 140 MEQ/L (136-145); TOTAL PROTEIN 6.9 GM/DL (6.4-8.2)
--- NOTE | 2018-10-20 13:16 | REP ---
Chest two views HISTORY: Fever Comparison: 01/30/2013 The lungs are clear. The heart is normal in size. The pulmonary vasculature is normal in appearance. The bony structure is intact. IMPRESSION: No acute disease. Electronically Signed by Ricky Franco MD 10/20/2018 01:09 P
[2018-10-20] MEDS ORDERED: HYDROCORTISONE 100 MG/2 ML VIAL (J1720) IV ONE (13:30)
[2018-10-20] MEDS ORDERED: cefTRIAXone SOD 1 GM in D5W MINI-BAG PLUS 50 ML IV ONE (13:30)
[2018-10-20] MEDS ORDERED: INSUHUMDS SC (14:09)
[2018-10-20] MEDS ORDERED: SYNT175T2 PO (14:09)
[2018-10-20] MEDS ORDERED: LOSA100T50 PO (14:09)
[2018-10-20] MEDS ORDERED: ACETAMINOPHEN TAB 650MG DOSE (2X325MG) PO PRN (16:00)
[2018-10-20] MEDS ORDERED: hydrOXYzine 10 MG TAB PO PRN (16:00)
[2018-10-20] MEDS ORDERED: GLUCAGON FOR INJ 1 MG VIAL (J1610) SC PRN (16:00)
[2018-10-20] MEDS ORDERED: DEXTROSE 50% 50 ML SYRINGE IV PRN (16:00)
[2018-10-20] MEDS ORDERED: GLUCOSE 4 GM CHEW TABLET PO PRN (16:00)
[2018-10-20] MEDS ORDERED: HYDROCORTISONE 100 MG/2 ML VIAL (J1720) IV SCH (16:00)
[2018-10-20] MEDS: HumaLOG INSULIN (NovoLOG) PER UNIT SC SCH ×2 (19:22→21:37)
[2018-10-20] MEDS: NS 1,000 ML IV SCH (19:22)
--- NOTE | 2018-10-20 20:55 | HPE ---
DATE OF ADMISSION: 10/20/2018 CHIEF COMPLAINT: Nausea, vomiting, abdominal pain. HISTORY OF PRESENT ILLNESS: This is a 33-year-old female with a past medical history of diabetes type 1, Hydro's disease, autoimmune hepatitis, lupus nephritis, hypothyroidism, who presents with a 1 day history of nausea, vomiting, abdominal pain. The patient reports that starting today she started having significant nausea, vomiting and diffuse abdominal pain. She had one bout of watery diarrhea. She denied any fevers. She reports that she does not have a history of gastroparesis from her diabetes. She says that she sometimes gets a stomach bug and this exacerbates her Hydro's disease. She works closely with an supply teacher at [facility] to manage her chronic steroids for her adrenal insufficiency. She follows with Dr. Oviedo. She also has a history of autoimmune hepatitis, for which she follows with Dr. Najera at [facility]. She also follows with Dr. Marte, her automotive instructor, for her lupus nephritis. She reports now her abdominal pain is significantly improved. She denies any upper respiratory infection symptoms. Early manifestation of a rash that she has. She did have a renal biopsy that reports that she has not been on any medications for the lupus nephritis and she has been unable to tolerate Cellcept in the past. In the emergency room, there was concern that the patient had adrenal crisis, given that she became hypertensive to the 90s over 50s and was tachycardic. She was given one dose of stress dose steroids, hydrocortisone times one, in the emergency room. She also received a dose of ceftriaxone in the emergency room for possible urinary tract infection (UTI). She received 2 liters of fluids and was admitted for possible adrenal crisis. REVIEW OF SYSTEMS: Negative for all 14 systems except what is noted above. PAST MEDICAL HISTORY: As noted above in the history of present illness. PAST SURGICAL HISTORY: The patient had an appendectomy in 1997, liver biopsy in 1993, and a kidney biopsy in 2017. MEDICATIONS: The patient's home medications are: - Florinef 0.1 mg daily - hydrocortisone 5 mg at night and 10 mg in the morning - losartan 100 mg daily - Plaquenil 200 mg at bedtime - Synthroid 175 mcg daily - hydroxyzine 10 mg four times a day as needed She also has an insulin pump. ALLERGIES: BACITRACIN, IBUPROFEN, NEOMYCIN, NUTS, SHELLFISH. FAMILY HISTORY: She denies any family history of autoimmune disorders. SOCIAL HISTORY: The patient is single and lives with her mother. 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 There is no alcohol or drugs. PHYSICAL EXAMINATION: On presentation in the emergency room, the patient had a maximum temperature (t-max) of 101.3, heart rate is as high as 136, blood pressure as high as 136 to 92, which dropped down to 92/51. She is saturating well at 98% on room air. GENERAL: She is alert, pleasant, thin female in no acute distress. HEENT: The patient has a prominent butterfly rash on her face. Oropharynx is clear. NECK: Supple. CARDIOVASCULAR: Regular rate and rhythm. No murmurs, rubs or gallops. LUNGS: Clear to auscultation bilaterally. No wheezes, rales or rhonchi. ABDOMEN: Soft, nontender, nondistended. EXTREMITIES: No clubbing, cyanosis or edema. NEUROLOGIC: Alert and oriented times three. Follows simple commands. No focal neurologic deficits. SKIN: Intact. PSYCHIATRIC: Mood stable. LABORATORIES: Complete blood count (CBC) is unremarkable. Sodium 140, potassium 3.1, creatinine 0.9. Urine shows 7 white cells, 53 red cells, leukocyte esterase negative, nitrite negative. Blood cultures are pending. Respiratory panel is negative for any influenza, respiratory syncytial virus (RSV), or other viruses. IMAGING: Chest x-ray showed no acute disease. ASSESSMENT AND PLAN: This is a 33-year-old female, type 1 diabetic, with other past medical history of Hydro's disease, autoimmune hepatitis, lupus nephritis, who presented with a chief complaint of nausea, vomiting, abdominal pain and found to be hypertensive, tachycardic with possible adrenal crisis. 1. Hypertension, tachycardia, concerning for possible adrenal crisis. The patient was started on stress dose steroids with hydrocortisone 100 mg IV in the emergency room. I am going to continue hydrocortisone for her, 100 mg IV every 8 hours. She has already been fluid resuscitated in the emergency room and we will continue her on maintenance IV fluids 100 mL per hour. It is possible that she has had an infectious etiology to trigger her adrenal crisis for her. I am going to go ahead and continue her ceftriaxone for possible infectious etiology. Her UA is slightly positive for white cells, although leukocyte and nitrite negative. Given she meets sepsis criteria with hypertension and tachycardia, we will go ahead and continue antibiotics as precaution. She is now significantly improved and her blood pressure is improved to SBP 110s. She will be admitted to the progressive care unit (PCU) for closer monitoring. 2. History of type 1 diabetes. She is on an insulin pump at home and I have stopped it for now and placed her on sliding scale. Primary team can consider endocrinology consult for further management of her pump if needed. She follows outpatient with [facility]. 3. History of hypothyroidism. I have continued her home Synthroid 75 mcg. 4. Deep vein thrombosis (DVT) prophylaxis. She is on subcutaneous heparin. The patient is FULL CODE. MTDD
[2018-10-20] MEDS: HYDROCORTISONE 100 MG/2 ML VIAL (J1720) IV SCH (21:39)
[2018-10-20] MEDS: HEPARIN SOD (PORCINE) 5000 UNITS/ML VIAL SC SCH (21:39)
[2018-10-20 23:15] VITALS: BP 124/81
[2018-10-20] MEDS: HYDROXYCHLOROQUINE 200 MG TAB PO SCH (23:40)
[2018-10-21 04:00] VITALS: BP 110/63
[2018-10-21] MEDS: HYDROCORTISONE 100 MG/2 ML VIAL (J1720) IV SCH ×3 (05:02→21:01)
[2018-10-21] MEDS: HEPARIN SOD (PORCINE) 5000 UNITS/ML VIAL SC SCH ×3 (05:02→21:01)
[2018-10-21] MEDS: LEVOTHYROXINE 50MCG TABLET (0.05MG) PO SCH (05:03)
[2018-10-21] MEDS: LEVOTHYROXINE 125MCG TABLET (0.125MG) PO SCH (05:03)
[2018-10-21 05:50] LABS: HEMATOCRIT 37.4 % (36.0-47.0); HEMOGLOBIN 12.8 g/dl (12.0-15.5); MEAN CORPUSCULAR HEMOGLOBIN 29.5 pg (27.0-33.0); MEAN CORPUSCULAR HGB CONC 34.2 g/dl (32.0-36.5); MEAN CORPUSCULAR VOLUME 86.2 fl (80.0-96.0); PLATELET COUNT, AUTOMATED 217 10^3/uL (150-450); RED BLOOD COUNT 4.34 10^6/uL (4.00-5.40); WHITE BLOOD COUNT 6.2 10^3/uL (4.0-10.0)
[2018-10-21 06:11] LABS: BLOOD UREA NITROGEN 9 MG/DL (7-18); CALCIUM LEVEL 7.4 MG/DL (8.5-10.1); CARBON DIOXIDE LEVEL 18 MEQ/L (21-32); CHLORIDE LEVEL 107 MEQ/L (98-107); CREATININE FOR GFR 0.58 MG/DL (0.55-1.30); GLOMERULAR FILTRATION RATE > 60.0 (>60); GLUCOSE, FASTING 249 MG/DL (70-100); POTASSIUM SERUM 3.3 MEQ/L (3.5-5.1); SODIUM LEVEL 138 MEQ/L (136-145)
[2018-10-21 07:58] VITALS: BP 110/51
[2018-10-21] MEDS: NS 1,000 ML IV SCH (08:23)
[2018-10-21] MEDS: HumaLOG INSULIN (NovoLOG) PER UNIT SC SCH ×2 (08:38→21:00)
[2018-10-21 12:00] VITALS: BP 114/57
[2018-10-21] MEDS ORDERED: cefTRIAXone SOD 1 GM in D5W MINI-BAG PLUS 50 ML IV SCH (13:00)
[2018-10-21 15:53] VITALS: BP 134/69
[2018-10-21] MEDS ORDERED: POTASSIUM CHLORIDE 10 MEQ SR TABLET PO ONE (16:00)
[2018-10-21 20:57] VITALS: BP 131/75
[2018-10-21] MEDS: HYDROXYCHLOROQUINE 200 MG TAB PO SCH (21:01)
[2018-10-22] VITALS: BP 125/85
--- NOTE | 2018-10-22 00:07 | IPNPDOC ---
Text Note Date of Service The patient was seen on 10/21/18. NOTE SUBJECTIVE: No further abdominal pain or diarrhea after admission. No fevers t his am . blood pressure is normal. No nausea or vomiting. PHYSICAL EXAMINATION: VITALS: As below GENERAL: She is alert, pleasant, thin female in no acute distress. HEENT: The patient has a prominent butterfly rash on her face. Oropharynx is clear. NECK: Supple. CARDIOVASCULAR: Regular rate and rhythm. No murmurs, rubs or gallops. LUNGS: Clear to auscultation bilaterally. No wheezes, rales or rhonchi. ABDOMEN: Soft, nontender, nondistended. EXTREMITIES: No clubbing, cyanosis or edema. NEUROLOGIC: Alert and oriented times three. Follows simple commands. No focal neurologic deficits. SKIN: Intact. PSYCHIATRIC: Mood stable. LABS and RADIOLOGY: Reviewed ASSESSMENT AND PLAN: This is a 33-year-old female with a past medical history of diabetes type 1, Musselshell's disease, autoimmune hepatitis, lupus nephritis, hypothyroidism, who presents with a 1 day history of nausea, vomi ting, abdominal pain. The patient reports that starting today she started having significant nausea, vomiting and diffuse abdominal pain. She had one bout of watery diarrhea. She denied any fevers. She reports that she does not have a history of gastroparesis from her diabetes. She says that she sometimes gets a stomach bug and this exacerbates her Musselshell's disease. She works closely with an scrap bunch maker at [facility] to manage her chronic steroids for her adrenal insufficiency. She follows with Dr. Oviedo. She also has a history of autoimmune hepatitis, for which she follows with Dr. Najera at [facility]. She also follows with Dr. Marte, her cutter finisher, for her lupus nephritis. She reports now her abdominal pain is significantly improved. She denies any upper respiratory infection symptoms. Early manifestation of a rash that she has. She did have a renal biopsy that reports that she has not been on any medications for the lupus nephritis and she has been unable to tolerate Cellcept or myfortic in the past. In the emergency room, she was febrile to 101.3 .there was concern that the patient had adrenal crisis, given that she became hypotensive to the 90s over 50s and was tachycardic. She was given one dose of stress dose steroids, hydrocortisone times one, in the emergency room. She also received a dose of ceftriaxone in the emergency room for possible urinary tract infection (UTI). She received 2 liters of fluids and was admitted for possible adrenal crisis Possible viral gastroenteritis with hypovolemia stop IVf, advance diet as tolerated. continue her ceftriaxone for possible infectious etiology. Hypotension, tachycardia, concerning for possible adrenal crisis. due to possible underlying infection continue hydrocortisone 100 mg Q8H On IVF. Improved BP after IVF. continue her ceftriaxone for possible infectious etiology. Possible UTI Her UA is slightly positive for white cells, although leukocyte and nitrite negative. Given she meets sepsis criteria with hypotension and tachycardia, we will go ahead and continue antibiotics as precaution. CXR negative, blood cultures ordered. Resp panel negative. continue her ceftriaxone for possible infectious etiology. Type 1 diabetes. She is on an insulin pump at home Hypothyroidism. Synthroid 75 mcg. History of Autoimmune hepatitis, lupus nephritis and M[place]hell disease continue HCQS, hold fludrocortisone while patient on stress dose steroids H/O Hypertension on presentation patient was hypotensive continue to hold losartan. Deep vein thrombosis (DVT) prophylaxis. She is on subcutaneous heparin. VS,Fishbone, I+O VS, Fishbone, I+O Laboratory Tests 10/20/18 09:43 Red Blood Count 4.85, Mean Corpuscular Volume 86.8, Mean Corpuscular Hemoglobin 30.1, Mean Corpuscular Hemoglobin Concent 34.7, Red Cell Distribution Width 12.9, Neutrophils (%) (Auto) 88.0 H, Lymphocytes (%) (Auto) 6.1 L, Monocytes (%) (Auto) 4.3, Eosinophils (%) (Auto) 1.2, Basophils (%) (Auto) 0.1, Neutrophils # (Auto) 6.7, Lymphocytes # (Auto) 0.5 L, Monocytes # (Auto) 0.3, Eosinophils # (Auto) 0.1, Basophils # (Auto) 0.0 10/20/18 09:44 10/20/18 12:05 Calcium Level 7.6 L, Aspartate Amino Transf (AST/SGOT) 20, Alanine Aminotransferase (ALT/SGPT) 27, Alkaline Phosphatase 57, Total Bilirubin 0.7, Total Protein 6.9, Albumin 2.7 L 10/21/18 04:30 Red Blood Count 4.34, Mean Corpuscular Volume 86.2, Mean Corpuscular Hemoglobin 29.5, Mean Corpuscular Hemoglobin Concent 34.2, Red Cell Distribution Width 12.2, Calcium Level 7.4 L Vital Signs Date Time Temp Pulse Resp B/P (MAP) Pulse Ox O2 Delivery O2 Flow Rate FiO2 10/21/18 07:58 97.3 96 18 110/51 (70) 96 Room Air I&O- Last 24 Hours up to 6 AM 10/21/18 06:00 Intake Total 3850 ml Output Total 800 ml Balance 3050 ml KEVIN GUSTAFSON MD Oct 21, 2018 08:41
[2018-10-22 04:00] VITALS: BP 123/80
[2018-10-22 05:24] LABS: BASO % 0.1 % (0.0-1.0); HEMATOCRIT 40.4 % (36.0-47.0); LYMPH # 0.7 10^3/uL (1.5-4.5); MEAN CORPUSCULAR HEMOGLOBIN 29.8 pg (27.0-33.0); MEAN CORPUSCULAR HGB CONC 34.7 g/dl (32.0-36.5); MONO # 0.5 10^3/uL (0.0-0.8); MONO % 4.9 % (0.0-5.0); NEUTROPHILS # 8.3 10^3/uL (1.8-7.7); NEUTROPHILS % 87.4 % (36.0-66.0); PLATELET COUNT, AUTOMATED 287 10^3/uL (150-450); WHITE BLOOD COUNT 9.4 10^3/uL (4.0-10.0)
[2018-10-22 05:28] LABS: BLOOD UREA NITROGEN 13 MG/DL (7-18); CALCIUM LEVEL 8.2 MG/DL (8.5-10.1); CARBON DIOXIDE LEVEL 22 MEQ/L (21-32); CHLORIDE LEVEL 111 MEQ/L (98-107); GLOMERULAR FILTRATION RATE > 60.0 (>60); GLUCOSE, FASTING 170 MG/DL (70-100); POTASSIUM SERUM 3.5 MEQ/L (3.5-5.1); SODIUM LEVEL 142 MEQ/L (136-145)
[2018-10-22] MEDS: HYDROCORTISONE 100 MG/2 ML VIAL (J1720) IV SCH (05:36)
[2018-10-22] MEDS: LEVOTHYROXINE 50MCG TABLET (0.05MG) PO SCH (05:37)
[2018-10-22] MEDS: LEVOTHYROXINE 125MCG TABLET (0.125MG) PO SCH (05:37)
[2018-10-22] MEDS: HEPARIN SOD (PORCINE) 5000 UNITS/ML VIAL SC SCH (05:37)
[2018-10-22 08:00] VITALS: BP 131/66
[2018-10-22] MEDS ORDERED: FLUDROCORTISONE ACETATE 0.1 MG TAB PO SCH (09:00)
[2018-10-22] MEDS ORDERED: LOSA50TA88 PO (09:28)
[2018-10-22] MEDS ORDERED: HYDROCORTISONE 5MG TABLET PO SCH (21:00)
[2018-10-23] MEDS ORDERED: HYDROCORTISONE 10 MG TAB PO SCH (09:00)
--- NOTE | 2018-11-03 02:14 | DS.PDOC ---
Discharge Summary General Date of Admission Oct 20, 2018 at 16:15 Date of Discharge 10/22/18 Attending Physician: KEVIN GUSTAFSON MD Discharge Summary PROCEDURES PERFORMED DURING STAY: [None]. DISCHARGE DIAGNOSES: Viral Gastroenteritis Hypokalemia and hypomagnesemia resolved. [place] disease Type 1 diabetes Autoimmune hepatitis Lupus Nephritis Hypothyroid COMPLICATIONS/CHIEF COMPLAINT: Adrenal Crisis, Sepsis. HISTORY OF PRESENT ILLNESS: Please see history and physical HOSPITAL COURSE: This is a 33-year-old female with a past medical history of diabetes type 1, [place]'s disease, autoimmune hepatitis, lupus nephritis, hypothyroidism, who presents with a 1 day history of nausea, vomiting, abdominal pain. The patient reports that starting today she started having significant nausea, vomiting and diffuse abdominal pain. She had one bout of watery diarrhea. She denied any fevers. She reports that she does not have a history of gastroparesis from her diabetes. She says that she sometimes gets a stomach bug and this exacerbates her [place]dale's disease. 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 She follows with Dr. Oviedo. She also has a history of autoimmune hepatitis, for which she follows with Dr. Najera at [facility]. She also follows with Dr. Marte, her terra cotta mold maker, for her lupus nephritis. She reports now her abdominal pain is significantly improved. She denies any upper respiratory infection symptoms. Early manifestation of a rash that she has. She did have a renal biopsy that reports that she has not been on any medications for the lupus nephritis and she has been unable to tolerate Cellcept or myfortic in the past. In the emergency room, she was febrile to 101.3 .there was concern that the patient had adrenal crisis, given that she became hypotensive to the 90s over 50s and was tachycardic. She was given one dose of stress dose steroids, hydrocortisone times one, in the emergency room. She also received a dose of ceftriaxone in the emergency room for possible urinary tract infection (UTI). She received 2 liters of fluids and was admitted for possible adrenal crisis Possible viral gastroenteritis resolved. antibiotics discontinued. [place] Disease Hypotension, tachycardia, concerning for possible adrenal crisis from infection hypotension improved after IVF. Due to dehydration will resume home dose of hydrocortisone. Possible UTI Her UA is slightly positive for white cells, although leukocyte and nitrite negative. Given she meets sepsis criteria with hypotension and tachycardia, we will go ahead and continue antibiotics as precaution. CXR negative, blood cultures ordered. Resp panel negative. given ceftriaxone Type 1 diabetes. She is on an insulin pump at home resume pump. Hypothyroidism. Synthroid 75 mcg. History of Autoimmune hepatitis, lupus nephritis and [place] disease continue HCQS,continue fludrocortisone and hydrocortisone Hypertension Losartan dose reduced. resume losartan after 2 days. DISCHARGE MEDICATIONS: Please see below. ALLERGIES: Please see below. PHYSICAL EXAMINATION ON DISCHARGE: VITAL SIGNS: Please see below. GENERAL: She is alert, pleasant, thin female in no acute distress. HEENT: The patient has a prominent butterfly rash on her face. Oropharynx is clear. NECK: Supple. CARDIOVASCULAR: Regular rate and rhythm. No murmurs, rubs or gallops. LUNGS: Clear to auscultation bilaterally. No wheezes, rales or rhonchi. ABDOMEN: Soft, nontender, nondistended. EXTREMITIES: No clubbing, cyanosis or edema. NEUROLOGIC: Alert and oriented times three. Follows simple commands. No focal neurologic deficits. SKIN: Intact. PSYCHIATRIC: Mood stable. LABORATORY DATA: Please see below. ACTIVITY: [As tolerated]. DIET: CARB consistent DISPOSITION: 01 Home, Self-Care. DISCHARGE INSTRUCTIONS: Follow up with PMD in 1 week DISCHARGE CONDITION: [Stable]. TIME SPENT ON DISCHARGE: Greater than 30 minutes. Vital Signs/I&Os Vital Signs Label Value Date Time Patient Temperature 97.9 degrees F 10/22/18 0400 Temperature Source Temporal 10/22/18 0400 Pulse 75 10/22/18 0400 Respiratory Rate 18 bpm 10/22/18 0400 Blood Pressure Assessment 123/80 (94) 10/22/18 0400 Bedside Pulse Oximetry 98 % 10/22/18 0400 Item Value Date Time Oxygen Delivery Method Room Air 10/22/18 0400 Laboratory Data CBC/BMP Item Value Date Time White Blood Count 9.4 10^3/uL 10/22/18 0448 Red Blood Count 4.70 10^6/uL 10/22/18 0448 Hemoglobin 14.0 g/dl 10/22/18 0448 Hematocrit 40.4 % 10/22/18 0448 Mean Corpuscular Volume 86.0 fl 10/22/18 0448 Mean Corpuscular Hemoglobin 29.8 pg 1/7/19 0448 Mean Corpuscular Hemoglobin Concent 34.7 g/dl 10/22/18447 Red Cell Distribution Width 12.7 % 10/22/18447 Platelet Count 287 10^3/uL 10/22/18447 Immature Granulocyte % (Auto) 0.6 % 10/22/18447 Neutrophils (%) (Auto) 87.4 % H 10/22/18447 Lymphocytes (%) (Auto) 7.0 % L 10/22/18447 Monocytes (%) (Auto) 4.9 % 10/22/18447 Eosinophils (%) (Auto) 0.0 % 10/22/18447 Basophils (%) (Auto) 0.1 % 10/22/18447 Neutrophils # (Auto) 8.3 10^3/uL H 10/22/18447 Lymphocytes # (Auto) 0.7 10^3/uL L 10/22/18447 Monocytes # (Auto) 0.5 10^3/uL 10/22/18447 Eosinophils # (Auto) 0.0 10^3/uL 10/22/18447 Basophils # (Auto) 0.0 10^3/uL 10/22/18447 Nucleated Red Blood Cells % (auto) 0.0 % 10/22/18447 Sodium Level 142 MEQ/L 10/22/18447 Potassium Level 3.5 MEQ/L 10/22/18447 Chloride Level 111 MEQ/L H 10/22/18447 Carbon Dioxide Level 22 MEQ/L 10/22/18447 Anion Gap 9 MEQ/L 10/22/18447 Blood Urea Nitrogen 13 MG/DL 10/22/18447 Creatinine 0.70 MG/DL 10/22/18447 Glomerular Filtration Rate > 60.0 10/22/18447 Fasting Glucose 170 MG/DL H 10/22/18447 Calcium Level 8.2 MG/DL L 10/22/18447 Discharge Medications Scheduled ([place]-28 0.3-30 mg-Mcg) 1 Tab Tab, 1 TAB PO QHS, (Reported) Fludrocortisone Acetate (Fludrocortisone Acetate) 0.1 Mg Tab, 0.1 MG PO DAILY, (Reported) Hydrocortisone Base (Hydrocortisone) 10 Mg Tab, 10 MG PO QAM, (Reported) Hydrocortisone Base (Hydrocortisone) 5 Mg Tab, 5 MG PO QHS, (Reported) Hydroxychloroquine Sulfate (Hydroxychloroquine Sulfat) 200 Mg Tab, 200 MG PO QPM, (Reported) Insulin Human Lispro (Humalog) 1 Units/0.01 Ml Inj, 1 DOSE SC ASDIRECTED, (Reported) VIA INSULIN PUMP Levothyroxine Sodium (Synthroid) 175 Mcg Tab, 175 MCG PO QPM, (Reported) Losartan Potassium (Losartan Potassium) 50 Mg Tab, 1 TAB PO DAILY start from 10/24/18 Scheduled PRN Hydroxyzine HCl (Hydroxyzine HCl) 10 Mg Tab, 10 MG PO QID PRN for ITCHING, (Reported) Allergies Coded Allergies: Bacitracin (Verified Allergy, Intermediate, 10/20/18) REDNESS AT APPLICATION SITE Ibuprofen (Verified Allergy, Intermediate, 10/20/18) HIVES Metronidazole (Verified Allergy, Intermediate, flushing, itching, tingling, 02/01/13) Neomycin (Verified Allergy, Intermediate, 12/27/16) Polymyxin B (Verified Allergy, Intermediate, 12/27/16) Shellfish Allergy (Verified Allergy, Intermediate, HIVES, 01/21/13) KEVIN GUSTAFSON MD Nov 03, 2018 02:13
== END 2018-10-22 11:34 | disposition home or self-care (01) | DRG 392 ==
LOC: M ED 09:05 → M ED INP 16:15 → M PCU 23:13
PROVIDERS: ADMIT Internal Medicine Nephrology; ATTEND Internal Medicine Nephrology
DX: A08.4 Viral intestinal infection, unspecified (principal); E27.2 Addisonian crisis; E10.9 Type 1 diabetes mellitus without complications; K75.4 Autoimmune hepatitis; M32.14 Glomerular disease in systemic lupus erythematosus; E87.6 Hypokalemia; E83.42 Hypomagnesemia; E03.9 Hypothyroidism, unspecified; Z79.899 Other long term (current) drug therapy; Z79.4 Long term (current) use of insulin; Z88.1 Allergy status to other antibiotic agents; Z88.6 Allergy status to analgesic agent; Z91.018 Allergy to other foods; Z91.013 Allergy to seafood

== ENCOUNTER → 2018-12-31 | Outpatient (CLI) | payer OTHER ==
[~2018-12-31] MED LIST changes: +HYDR200T3 PO; +INSUHUMDS SC; +LOSA100T50 PO; +SYNT175T2 PO
[2018-12-31 16:18] LABS: ALBUMIN 3.2 GM/DL (3.2-5.2); BILIRUBIN,DIRECT 0.2 MG/DL (0.0-0.2); BILIRUBIN,TOTAL 0.6 MG/DL (0.2-1.0); TOTAL PROTEIN 7.4 GM/DL (6.4-8.2)
== END ==
LOC: M LAB 15:18
PROVIDERS: ATTEND Internal Medicine Gastroenterology
DX: K75.4 Autoimmune hepatitis (principal); K74.60 Unspecified cirrhosis of liver

== ENCOUNTER → 2019-04-29 | Outpatient (CLI) | payer OTHER ==
[~2019-04-29] MED LIST changes: -/ONDA4TA OR; -HYDR-3291 PO; +HYDR-4327 PO; +HYDR-4513 PO; +ONDA-1 OR
[2019-04-29 15:30] LABS: HEMOGLOBIN 13.9 g/dl (12.0-15.5); MEAN CORPUSCULAR HEMOGLOBIN 30.1 pg (27.0-33.0); MEAN CORPUSCULAR HGB CONC 34.8 g/dl (32.0-36.5); MEAN CORPUSCULAR VOLUME 86.6 fl (80.0-96.0); PLATELET COUNT, AUTOMATED 192 10^3/uL (150-450); RED BLOOD COUNT 4.62 10^6/uL (4.00-5.40); WHITE BLOOD COUNT 5.5 10^3/uL (4.0-10.0)
[2019-04-29 15:44] LABS: INR 1.1; PROTHROMBIN TIME 13.9 SECONDS (11.8-14.0)
[2019-04-29 15:45] LABS: PARTIAL THROMBOPLASTIN TIME 34.1 SECONDS (25.0-38.4)
[2019-04-29 21:43] LABS: ALBUMIN 2.9 GM/DL (3.2-5.2); ALT/SGPT 47 U/L (12-78); BILIRUBIN,TOTAL 0.8 MG/DL (0.2-1.0); BLOOD UREA NITROGEN 12 MG/DL (7-18); CALCIUM LEVEL 8.6 MG/DL (8.5-10.1); CARBON DIOXIDE LEVEL 26 MEQ/L (21-32); CHLORIDE LEVEL 105 MEQ/L (98-107); CREATININE FOR GFR 0.74 MG/DL (0.55-1.30); GLOMERULAR FILTRATION RATE > 60.0 (>60); GLUCOSE, FASTING 163 MG/DL (70-100); POTASSIUM SERUM 4.5 MEQ/L (3.5-5.1); SODIUM LEVEL 139 MEQ/L (136-145); TOTAL PROTEIN 7.4 GM/DL (6.4-8.2)
== END ==
LOC: M WUC 12:19
PROVIDERS: ATTEND Internal Medicine Gastroenterology
DX: K75.4 Autoimmune hepatitis (principal)

== ENCOUNTER → 2022-03-11 | Outpatient (CLI) | payer OTHER ==
[~2022-03-11] MED LIST changes: -HYDR-4327 PO; +HYDR-4467 PO; +HYDR-4468 PO; -HYDR-4513 PO; +LOSA100T45 PO; -LOSA100T50 PO; +LOSA50TA28 PO; -LOSA50TA88 PO
[2022-03-11 11:21] LABS: BASO % 0.2 % (0.0-1.0); HEMATOCRIT 43.1 % (36.0-47.0); HEMOGLOBIN 14.4 g/dl (12.0-15.5); LYMPH # 1.7 10^3/uL (1.5-5.0); LYMPH % 28.1 % (24.0-44.0); MEAN CORPUSCULAR HEMOGLOBIN 30.2 pg (27.0-33.0); MEAN CORPUSCULAR HGB CONC 33.4 g/dl (32.0-36.5); MEAN CORPUSCULAR VOLUME 90.4 fl (80.0-96.0); MONO # 0.5 10^3/uL (0.0-0.8); NEUTROPHILS # 3.7 10^3/uL (1.5-8.5); NEUTROPHILS % 62.4 % (36.0-66.0); PLATELET COUNT, AUTOMATED 252 10^3/uL (150-450); RED BLOOD COUNT 4.77 10^6/uL (4.00-5.40); WHITE BLOOD COUNT 5.9 10^3/uL (4.0-10.0)
== END ==
LOC: M LAB 08:48
PROVIDERS: ATTEND Physician Assistant
DX: R76.0 Raised antibody titer (principal); Z79.899 Other long term (current) drug therapy; Z79.890 Hormone replacement therapy; Z79.4 Long term (current) use of insulin

== ENCOUNTER → 2022-03-11 | Outpatient (CLI) | payer OTHER | LOC: M RAD 07:51 | PROVIDERS: ATTEND Internal Medicine Gastroenterology | DX: K75.4 Autoimmune hepatitis (principal) ==

== ENCOUNTER → 2022-04-05 | Outpatient (REF) | payer OTHER ==
[2022-04-05 19:57] LABS: BLOOD UREA NITROGEN 12 MG/DL (7-18); CREATININE FOR GFR 0.92 MG/DL (0.55-1.30); GLOMERULAR FILTRATION RATE > 60.0 (>60)
== END ==
LOC: M WUC 19:19
PROVIDERS: ATTEND Internal Medicine Gastroenterology
DX: K75.4 Autoimmune hepatitis (principal)

== ENCOUNTER → 2022-05-17 | Outpatient (CLI) | payer OTHER ==
[~2022-05-17] MED LIST changes: +PROHANCE 279.3MG/ML 15ML VIAL As Ordered ONE; +PROHANCE 279.3MG/ML 5ML VIAL As Ordered ONE
== END ==
LOC: M PLAIMG 04-13 07:42 → M RAD 14:08
PROVIDERS: ATTEND Internal Medicine Gastroenterology
DX: K75.4 Autoimmune hepatitis (principal); R16.1 Splenomegaly, not elsewhere classified
CPT/HCPCS: 74183; A9576

== ENCOUNTER → 2022-09-20 | Outpatient (CLI) | payer OTHER ==
[~2022-09-20] MED LIST changes: -PROHANCE 279.3MG/ML 15ML VIAL As Ordered ONE; -PROHANCE 279.3MG/ML 5ML VIAL As Ordered ONE
[2022-09-20 11:57] LABS: BLOOD UREA NITROGEN 10 MG/DL (9-23); CARBON DIOXIDE LEVEL 27 MMOL/L (20-31); CHLORIDE LEVEL 104 MMOL/L (98-107); CREATININE FOR GFR 0.75 MG/DL (0.55-1.30); GLOMERULAR FILTRATION RATE > 60.0 (>60); GLUCOSE, FASTING 169 MG/DL (60-100); POTASSIUM SERUM 3.4 MMOL/L (3.5-5.1); SODIUM LEVEL 140 MMOL/L (136-145)
== END ==
LOC: M WUC 08:31
PROVIDERS: ATTEND Internal Medicine Endocrinology, Diabetes & Metabolism
DX: E87.6 Hypokalemia (principal)

== ENCOUNTER → 2022-09-20 | Outpatient (CLI) | payer OTHER ==
[2022-09-20 11:56] LABS: BLOOD UREA NITROGEN 10 MG/DL (9-23); CREATININE FOR GFR 0.75 MG/DL (0.55-1.30); GLOMERULAR FILTRATION RATE > 60.0 (>60)
== END ==
LOC: M WUC 08:36
PROVIDERS: ATTEND Internal Medicine Gastroenterology
DX: K75.4 Autoimmune hepatitis (principal); K76.9 Liver disease, unspecified; K74.60 Unspecified cirrhosis of liver

== ENCOUNTER → 2022-09-20 | Outpatient (CLI) | payer OTHER ==
[2022-09-20 11:37] LABS: HEMATOCRIT 39.4 % (36.0-47.0); LYMPH # 1.5 10^3/uL (1.5-5.0); LYMPH % 22.7 % (24.0-44.0); MEAN CORPUSCULAR HEMOGLOBIN 29.9 pg (27.0-33.0); MEAN CORPUSCULAR VOLUME 90.6 fl (80.0-96.0); MONO # 0.6 10^3/uL (0.0-0.8); NEUTROPHILS # 4.4 10^3/uL (1.5-8.5); PLATELET COUNT, AUTOMATED 253 10^3/uL (150-450); RED BLOOD COUNT 4.35 10^6/uL (4.00-5.40); WHITE BLOOD COUNT 6.5 10^3/uL (4.0-10.0)
[2022-09-20 11:56] LABS: ALBUMIN 2.6 G/DL (3.2-5.2); ALKALINE PHOSPHATASE 44 U/L (46-116); ALT/SGPT 129 U/L (7.0-40); AST/SGOT 60 U/L (<34); BILIRUBIN,TOTAL 1.4 MG/DL (0.3-1.2); BLOOD UREA NITROGEN 10 MG/DL (9-23); CARBON DIOXIDE LEVEL 27 MMOL/L (20-31); CHLORIDE LEVEL 105 MMOL/L (98-107); CREATININE FOR GFR 0.77 MG/DL (0.55-1.30); GLOMERULAR FILTRATION RATE > 60.0 (>60); GLUCOSE, FASTING 166 MG/DL (60-100); POTASSIUM SERUM 3.3 MMOL/L (3.5-5.1); SODIUM LEVEL 140 MMOL/L (136-145); TOTAL PROTEIN 6.6 G/DL (5.7-8.2)
== END ==
LOC: M WUC 08:33
PROVIDERS: ATTEND Internal Medicine Rheumatology
DX: M32.9 Systemic lupus erythematosus, unspecified (principal)

== ENCOUNTER → 2022-12-09 | Outpatient (CLI) | payer OTHER ==
[2022-12-09 10:38] LABS: BLOOD UREA NITROGEN 16 MG/DL (9-23); CREATININE FOR GFR 0.72 MG/DL (0.55-1.30); GLOMERULAR FILTRATION RATE > 60.0 (>60)
== END ==
LOC: M WUC 08:31
PROVIDERS: ATTEND Internal Medicine Gastroenterology
DX: K75.4 Autoimmune hepatitis (principal); K76.9 Liver disease, unspecified; K74.60 Unspecified cirrhosis of liver

== ENCOUNTER → 2022-12-12 | Outpatient (CLI) | payer OTHER ==
[~2022-12-12] MED LIST changes: +ISOVUE-370 76% 100ML VIAL As Ordered ONE
== END ==
LOC: M RAD 14:59
PROVIDERS: ATTEND Internal Medicine Gastroenterology
DX: K75.4 Autoimmune hepatitis (principal); K76.9 Liver disease, unspecified; K74.60 Unspecified cirrhosis of liver; R16.1 Splenomegaly, not elsewhere classified; R59.0 Localized enlarged lymph nodes

== ENCOUNTER → 2023-02-18 | Outpatient (CLI) | payer OTHER ==
[~2023-02-18] MED LIST changes: -ISOVUE-370 76% 100ML VIAL As Ordered ONE; -LOSA100T45 PO; +LOSA100T46 PO
[2023-02-18 11:39] LABS: BLOOD UREA NITROGEN 9 MG/DL (9-23); CALCIUM LEVEL 8.4 MG/DL (8.5-10.1); CARBON DIOXIDE LEVEL 28 MMOL/L (20-31); CHLORIDE LEVEL 105 MMOL/L (98-107); CREATININE FOR GFR 0.82 MG/DL (0.55-1.30); GLOMERULAR FILTRATION RATE > 60.0 (>60); GLUCOSE, FASTING 170 MG/DL (60-100); POTASSIUM SERUM 3.5 MMOL/L (3.5-5.1); SODIUM LEVEL 140 MMOL/L (136-145)
[2023-02-18 11:42] LABS: THYROID STIMULATING HORMONE 4.556 uIU/ML (0.55-4.78)
== END ==
LOC: M LAB 10:05
PROVIDERS: ATTEND Nurse Practitioner Family
DX: E03.9 Hypothyroidism, unspecified (principal)

== ENCOUNTER → 2023-02-18 | Outpatient (CLI) | payer OTHER ==
[2023-02-18 11:08] LABS: HEMATOCRIT 40.5 % (36.0-47.0); HEMOGLOBIN 13.6 g/dl (12.0-15.5); MEAN CORPUSCULAR HEMOGLOBIN 29.2 pg (27.0-33.0); MEAN CORPUSCULAR HGB CONC 33.6 g/dl (32.0-36.5); MEAN CORPUSCULAR VOLUME 86.9 fl (80.0-96.0); PLATELET COUNT, AUTOMATED 309 10^3/uL (150-450); RED BLOOD COUNT 4.66 10^6/uL (4.00-5.40); WHITE BLOOD COUNT 7.2 10^3/uL (4.0-10.0)
[2023-02-18 11:17] LABS: ERYTHROCYTE SEDIMENTATION RATE 48 mm/hr (0-20)
[2023-02-18 11:38] LABS: ALBUMIN 2.8 G/DL (3.2-5.2); ALKALINE PHOSPHATASE 53 U/L (46-116); ALT/SGPT 82 U/L (7.0-40); AST/SGOT 37 U/L (<34); BILIRUBIN,TOTAL 1.4 MG/DL (0.3-1.2); BLOOD UREA NITROGEN 10 MG/DL (9-23); CALCIUM LEVEL 8.6 MG/DL (8.5-10.1); CARBON DIOXIDE LEVEL 28 MMOL/L (20-31); CHLORIDE LEVEL 105 MMOL/L (98-107); CREATININE FOR GFR 0.82 MG/DL (0.55-1.30); GLOMERULAR FILTRATION RATE > 60.0 (>60); GLUCOSE, FASTING 170 MG/DL (60-100); POTASSIUM SERUM 3.5 MMOL/L (3.5-5.1); SODIUM LEVEL 139 MMOL/L (136-145); TOTAL PROTEIN 7.3 G/DL (5.7-8.2)
== END ==
LOC: M LAB 10:03
PROVIDERS: ATTEND Internal Medicine Rheumatology
DX: M32.14 Glomerular disease in systemic lupus erythematosus (principal)

== ENCOUNTER → 2023-06-01 | Outpatient (CLI) | payer OTHER ==
[~2023-06-01] MED LIST changes: -HYDR200T3 PO; +HYDR200T46 PO
[2023-06-01 10:18] LABS: HEMOGLOBIN 13.7 g/dl (12.0-15.5); MEAN CORPUSCULAR HEMOGLOBIN 29.3 pg (27.0-33.0); MEAN CORPUSCULAR HGB CONC 33.4 g/dl (32.0-36.5); MEAN CORPUSCULAR VOLUME 87.6 fl (80.0-96.0); PLATELET COUNT, AUTOMATED 287 10^3/uL (150-450); RED BLOOD COUNT 4.68 10^6/uL (4.00-5.40)
[2023-06-01 10:26] LABS: APPEARANCE, URINE CLEAR (CLEAR); BACTERIA, URINE AUTO NEGATIVE (NEGATIVE); BILIRUBIN, URINE AUTO NEGATIVE (NEGATIVE); BLOOD, URINE BLOOD 1+ (NEGATIVE); COLOR, URINE AMBER (YELLOW); GLUCOSE, URINE (UA) AUTO NEGATIVE (NEGATIVE); KETONE, URINE AUTO NEGATIVE (NEGATIVE); LEUKOCYTE ESTERASE, URINE AUTO TRACE (NEGATIVE); MUCUS, URINE SMALL (NEGATIVE); NITRITE, URINE AUTO NEGATIVE (NEGATIVE); PROTEIN, URINE AUTO 2+ mg/dL (NEGATIVE); RBC, URINE AUTO 3 /HPF (0-3); SPECIFIC GRAVITY URINE AUTO 1.019 (1.002-1.035); SQUAMOUS EPITHELIAL CELL UR AU 1 /HPF (0-6); WBC, URINE AUTO 0 /HPF (0-3)
[2023-06-01 10:38] LABS: TOTAL PROTEIN,RANDOM URINE 107.8 MG/DL (0.0-14.0)
[2023-06-01 10:43] LABS: CREATININE,RANDOM URINE 171.9 MG/DL
[2023-06-01 10:45] LABS: COMPLEMENT C3 83.3 MG/DL (84.0-160.0); COMPLEMENT C4 4.5 MG/DL (12-36)
[2023-06-05 13:08] LABS: ANTI DS-DNA AB Negative (Negative); BETA-2 GLYCOPROTEIN I ABY IGA 32 (0-25); BETA-2 GLYCOPROTEIN I ABY IGG <9 (0-20); BETA-2 GLYCOPROTEIN I ABY IGM 52 (0-32); CARDIOLIPIN IGA ANTIBODY 15 APL U/mL (0-11); CARDIOLIPIN IGG ANTIBODY 10 GPL U/mL (0-14); CARDIOLIPIN IGM ANTIBODY >150 MPL U/mL (0-12)
== END ==
LOC: M WUC 08:27
PROVIDERS: ATTEND Internal Medicine Rheumatology
DX: D68.61 Antiphospholipid syndrome (principal); M32.9 Systemic lupus erythematosus, unspecified

== ENCOUNTER → 2023-07-07 | Outpatient (CLI) | payer OTHER | LOC: M RAD 08:07 | PROVIDERS: ATTEND Physician Assistant Medical | DX: K76.9 Liver disease, unspecified (principal); K75.4 Autoimmune hepatitis ==

== ENCOUNTER → 2023-10-13 | Outpatient (CLI) | payer OTHER ==
[2023-10-13 16:16] LABS: HEMATOCRIT 37.8 % (36.0-47.0); HEMOGLOBIN 12.8 g/dl (12.0-15.5); MEAN CORPUSCULAR HEMOGLOBIN 30.3 pg (27.0-33.0); MEAN CORPUSCULAR HGB CONC 33.9 g/dl (32.0-36.5); MEAN CORPUSCULAR VOLUME 89.6 fl (80.0-96.0); PLATELET COUNT, AUTOMATED 219 10^3/uL (150-450); RED BLOOD COUNT 4.22 10^6/uL (4.00-5.40)
[2023-10-13 16:31] LABS: COMPLEMENT C4 1.9 MG/DL (12-36)
[2023-10-13 16:35] LABS: ALBUMIN 2.9 G/DL (3.2-5.2); ALKALINE PHOSPHATASE 46 U/L (46-116); ALT/SGPT 61 U/L (7.0-40); AST/SGOT 37 U/L (<34); BILIRUBIN,TOTAL 1.4 MG/DL (0.3-1.2); BLOOD UREA NITROGEN 16 MG/DL (9-23); CALCIUM LEVEL 8.4 MG/DL (8.5-10.1); CARBON DIOXIDE LEVEL 28 MMOL/L (20-31); CHLORIDE LEVEL 103 MMOL/L (98-107); CREATININE FOR GFR 0.76 MG/DL (0.55-1.30); GLOMERULAR FILTRATION RATE > 60.0 (>60); GLUCOSE, FASTING 265 MG/DL (60-100); POTASSIUM SERUM 3.5 MMOL/L (3.5-5.1); SODIUM LEVEL 139 MMOL/L (136-145)
== END ==
LOC: M WUC 13:32
PROVIDERS: ATTEND Internal Medicine Rheumatology
DX: M32.9 Systemic lupus erythematosus, unspecified (principal); Z79.899 Other long term (current) drug therapy

== ENCOUNTER 2023-11-27 07:26 | Day surgery (SDC) | payer OTHER ==
[~2023-11-27] VITALS: Ht 154.9 cm; Wt 96.6 kg
[~2023-11-27 07:26] MED LIST changes: +ASPI81CH33 PO; +ATOR40TA75 PO; +CLAR10CA3 PO; +FAMO40TA3 PO; +HYDR-3490 PO; +METO1TAB7 PO; +PLAQ200T4 PO; +SERT25TA21 PO; +VITA-172 PO; +VITA100093 PO
[2023-11-27] MEDS ORDERED: propofoL 200 MG/20 ML VIAL As Ordered ONE (08:12)
[2023-11-27] MEDS ORDERED: LIDOCAINE 2% 100MG/5ML SDV (FOR ANES.) As Ordered ONE (08:12)
[2023-11-27] MEDS ORDERED: MIDAZOLAM INJ 2MG/2ML VIAL As Ordered ONE (08:12)
[2023-11-27] MEDS ORDERED: fentaNYL 100 MCG/2 ML INJECTION As Ordered ONE (08:15)
[2023-11-27] MEDS ORDERED: ONDANSETRON 4MG 2ML VIAL As Ordered ONE (09:25)
[2023-11-27] MEDS ORDERED: METOCLOPRAMIDE INJ 10MG/2ML VIAL As Ordered ONE (09:25)
[2023-11-27] MEDS ORDERED: ACETAMINOPHEN 1000MG 100ML IV BAG As Ordered ONE (09:37)
[2023-11-27] MEDS ORDERED: ONDANSETRON 4MG 2ML VIAL IV PRN (09:50)
[2023-11-27] MEDS ORDERED: MORPHINE 2 MG/ML 1ML VIAL IV PRN (09:50)
[2023-11-27] MEDS ORDERED: fentaNYL 100 MCG/2 ML INJECTION IV PRN (09:50)
[2023-11-27] MEDS ORDERED: oxyCODONE 5MG TAB PO PRN (09:50)
[2023-11-27] MEDS: LR 1,000 ML IV SCH (10:06)
[2023-11-27 11:27] VITALS: BP 132/78; TEMP 97.5; O2SAT 100
== END 2023-11-27 11:33 | disposition home or self-care (01) ==
LOC: M SDC 07:26
PROVIDERS: ATTEND Orthopaedic Surgery Hand Surgery
DX: G56.02 Carpal tunnel syndrome, left upper limb (principal); I25.10 Atherosclerotic heart disease of native coronary artery without angina pectoris; I10 Essential (primary) hypertension; E10.9 Type 1 diabetes mellitus without complications; E78.00 Pure hypercholesterolemia, unspecified; I25.2 Old myocardial infarction; E03.9 Hypothyroidism, unspecified; M32.14 Glomerular disease in systemic lupus erythematosus; Z79.890 Hormone replacement therapy; Z79.82 Long term (current) use of aspirin; Z79.899 Other long term (current) drug therapy; Z79.4 Long term (current) use of insulin; Z95.5 Presence of coronary angioplasty implant and graft; Z88.8 Allergy status to other drugs, medicaments and biological substances; Z88.1 Allergy status to other antibiotic agents; Z88.6 Allergy status to analgesic agent
CPT/HCPCS: 64721; 81025; J0131; J0665; J2250; J2405; J2765; J3010

== ENCOUNTER → 2024-02-12 | Outpatient (CLI) | payer OTHER | LOC: M WUC 11:15 | PROVIDERS: ATTEND Internal Medicine Rheumatology | DX: Z79.899 Other long term (current) drug therapy (principal) ==

== ENCOUNTER → 2024-02-12 | Outpatient (CLI) | payer OTHER ==
[2024-02-12 16:36] LABS: CHOLESTEROL RISK RATIO 3.37 (<5); HDL CHOLESTEROL 28.7 MG/DL (>40); LDL CHOLESTEROL 50.3 MG/DL (<100); NON-HDL-C 68.3 MG/DL
[2024-02-12 16:38] LABS: FREE T4 1.08 NG/DL (0.89-1.76)
[2024-02-12 16:39] LABS: THYROID STIMULATING HORMONE 0.503 uIU/ML (0.55-4.78); TOTAL 25(OH) VITAMIN D 59.3 NG/ML (20.0-100.0)
[2024-02-12 17:57] LABS: MAU/CREAT RATIO 20.4 MCG/MG (0.0-30.0)
== END ==
LOC: M WUC 11:12
PROVIDERS: ATTEND Physician Assistant
DX: E10.65 Type 1 diabetes mellitus with hyperglycemia (principal)

== ENCOUNTER → 2024-02-12 | Outpatient (CLI) | payer OTHER ==
[2024-02-12 16:31] LABS: HEMATOCRIT 35.3 % (36.0-47.0); HEMOGLOBIN 12.3 g/dl (12.0-15.5); LYMPH # 1.1 10^3/uL (1.5-5.0); LYMPH % 28.1 % (24.0-44.0); MEAN CORPUSCULAR HEMOGLOBIN 31.9 pg (27.0-33.0); MEAN CORPUSCULAR HGB CONC 34.8 g/dl (32.0-36.5); MEAN CORPUSCULAR VOLUME 91.5 fl (80.0-96.0); MONO # 0.5 10^3/uL (0.0-0.8); MONO % 11.4 % (2.0-8.0); NEUTROPHILS # 2.4 10^3/uL (1.5-8.5); NEUTROPHILS % 60.2 % (36.0-66.0); PLATELET COUNT, AUTOMATED 199 10^3/uL (150-450); RED BLOOD COUNT 3.86 10^6/uL (4.00-5.40)
[2024-02-12 16:36] LABS: ALBUMIN 2.6 G/DL (3.2-5.2); ALKALINE PHOSPHATASE 69 U/L (46-116); ALT/SGPT 53 U/L (7.0-40); AST/SGOT 59 U/L (<34); BILIRUBIN,TOTAL 1.6 MG/DL (0.3-1.2); BLOOD UREA NITROGEN 10 MG/DL (9-23); CALCIUM LEVEL 8.4 MG/DL (8.5-10.1); CARBON DIOXIDE LEVEL 30 MMOL/L (20-31); CHLORIDE LEVEL 104 MMOL/L (98-107); CREATININE FOR GFR 0.68 MG/DL (0.55-1.30); GLOMERULAR FILTRATION RATE > 60.0 (>60); GLUCOSE, FASTING 167 MG/DL (60-100); SODIUM LEVEL 140 MMOL/L (136-145); TOTAL PROTEIN 6.7 G/DL (5.7-8.2)
[2024-02-12 16:43] LABS: INR 1.09; PARTIAL THROMBOPLASTIN TIME 34.3 SECONDS (24.8-34.2); PROTHROMBIN TIME 13.8 SECONDS (12.5-14.5)
== END ==
LOC: M WUC 11:07
PROVIDERS: ATTEND Internal Medicine Gastroenterology
DX: K75.4 Autoimmune hepatitis (principal)

== ENCOUNTER → 2024-03-29 | Outpatient (CLI) | payer OTHER ==
[~2024-03-29] MED LIST changes: +PROHANCE 279.3MG/ML 15ML VIAL ONE; +PROHANCE 279.3MG/ML 5ML VIAL ONE
== END ==
LOC: M PLAIMG 07:36
PROVIDERS: ATTEND Internal Medicine Gastroenterology
DX: K75.4 Autoimmune hepatitis (principal); K76.89 Other specified diseases of liver; R16.1 Splenomegaly, not elsewhere classified
CPT/HCPCS: 74183; A9576

== ENCOUNTER → 2024-07-04 | Outpatient (CLI) | payer OTHER ==
[~2024-07-04] MED LIST changes: -PROHANCE 279.3MG/ML 15ML VIAL ONE; -PROHANCE 279.3MG/ML 5ML VIAL ONE
[2024-07-04 12:24] LABS: HEMATOCRIT 34.1 % (36.0-47.0); HEMOGLOBIN 11.5 g/dl (12.0-15.5); LYMPH # 1.4 10^3/uL (1.5-5.0); LYMPH % 28.9 % (24.0-44.0); MEAN CORPUSCULAR HEMOGLOBIN 31.4 pg (27.0-33.0); MEAN CORPUSCULAR HGB CONC 33.7 g/dl (32.0-36.5); MEAN CORPUSCULAR VOLUME 93.2 fl (80.0-96.0); MONO # 0.4 10^3/uL (0.0-0.8); MONO % 9.4 % (2.0-8.0); NEUTROPHILS # 2.9 10^3/uL (1.5-8.5); NEUTROPHILS % 61.7 % (36.0-66.0); PLATELET COUNT, AUTOMATED 198 10^3/uL (150-450); RED BLOOD COUNT 3.66 10^6/uL (4.00-5.40); WHITE BLOOD COUNT 4.7 10^3/uL (4.0-10.0)
[2024-07-04 12:38] LABS: INR 3.38; PARTIAL THROMBOPLASTIN TIME 43.6 SECONDS (24.8-34.2); PROTHROMBIN TIME 32.9 SECONDS (12.5-14.5)
[2024-07-04 12:52] LABS: ALBUMIN 3.1 G/DL (3.2-5.2); ALKALINE PHOSPHATASE 86 U/L (46-116); ALT/SGPT 46 U/L (7.0-40); AST/SGOT 41 U/L (<34); BILIRUBIN,TOTAL 1.4 MG/DL (0.3-1.2); BLOOD UREA NITROGEN 9 MG/DL (9-23); CALCIUM LEVEL 8.2 MG/DL (8.5-10.1); CARBON DIOXIDE LEVEL 29 MMOL/L (20-31); CHLORIDE LEVEL 107 MMOL/L (98-107); CREATININE FOR GFR 0.65 MG/DL (0.55-1.30); GLOMERULAR FILTRATION RATE > 60.0 (>60); GLUCOSE, FASTING 125 MG/DL (60-100); POTASSIUM SERUM 3.2 MMOL/L (3.5-5.1); SODIUM LEVEL 139 MMOL/L (136-145); TOTAL PROTEIN 7.1 G/DL (5.7-8.2)
== END ==
LOC: M WUC 09:16
PROVIDERS: ATTEND Internal Medicine Gastroenterology
DX: K75.4 Autoimmune hepatitis (principal)

== ENCOUNTER → 2024-07-04 | Outpatient (CLI) | payer OTHER | LOC: M RAD 08:09 | PROVIDERS: ATTEND Internal Medicine Gastroenterology | DX: K75.4 Autoimmune hepatitis (principal) ==

== ENCOUNTER → 2024-07-04 | Outpatient (CLI) | payer OTHER ==
[2024-07-04 12:48] LABS: HEMOGLOBIN A1c 5.3 % (4.0-6.0)
[2024-07-04 12:54] LABS: FREE T4 1.08 NG/DL (0.89-1.76)
[2024-07-04 12:55] LABS: THYROID STIMULATING HORMONE 5.14 uIU/ML (0.55-4.78)
== END ==
LOC: M WUC 09:18
PROVIDERS: ATTEND Physician Assistant
DX: E06.3 Autoimmune thyroiditis (principal); E03.8 Other specified hypothyroidism; E10.65 Type 1 diabetes mellitus with hyperglycemia